=== PATIENT | female | born 1950 | race Caucasian/White ===

== ENCOUNTER 2018-11-13 05:50 | Outpatient (CLI) | payer MEDICARE, OTHER ==
[~2018-11-13] VITALS: Ht 165.1 cm; Wt 68.0 kg
[2018-11-13] MEDS ORDERED: POTA99TA21 PO (11:56)
[2018-11-13] MEDS ORDERED: LUTE6CAP2 PO (11:56)
[2018-11-13] MEDS ORDERED: MONT10TA24 PO (11:56)
[2018-11-13] MEDS ORDERED: LACT1CAP72 PO (11:56)
[2018-11-13] MEDS ORDERED: FOLI1TAB7 PO (11:56)
[2018-11-13] MEDS ORDERED: VITA-189 PO (11:56)
[2018-11-13] MEDS ORDERED: FERR159T2 PO (11:56)
[2018-11-13] MEDS ORDERED: MAGN500C15 PO (11:56)
[2018-11-13] MEDS ORDERED: UBID100C17 PO (11:56)
== END 2018-11-13 11:59 | disposition home or self-care (01) ==
LOC: PREOP 05:50
PROVIDERS: ATTEND Specialist
DX: Z01.818 Encounter for other preprocedural examination (principal)

== ENCOUNTER 2018-11-16 08:06 | Day surgery (SDC) | payer MEDICARE ==
[~2018-11-16] VITALS: Ht 165.1 cm; Wt 68.0 kg
[~2018-11-16 08:06] MED LIST: FERR159T2 PO; FOLI1TAB7 PO; LACT1CAP72 PO; LUTE6CAP2 PO; MAGN500C15 PO; MONT10TA24 PO; POTA99TA21 PO; UBID100C17 PO; VITA-189 PO
--- OUTSIDE RECORDS SUMMARY | 2018-11-16 08:10 | XMS REPORT ---
Author Author Madhuri Nieves [facility] Address [address] [place], [place] [id number] Care Team Providers Care [employer] Name Role Phone Madhuri Nieves PCP Madhuri Nieves PreferredProvider Allergies and Adverse Reactions Name Reaction Notes PENICILLINS SULFA (SULFONAMIDES) thermasol preservative Plan of Treatment Planned Activity Comments Planned Date Planned Time Plan/Goal Chest x-ray, PA and lateral 11/13/2018 12:00 AM EKG (12-lead electrocardiogram) 11/13/2018 12:00 AM Medications Active Name Start Date Estimated Completion Date SIG Comments montelukast 10 mg oral tablet 01/09/2018 TAKE ONE TABLET BY MOUTH ONCE DAILY IN THE MORNING for 90 days montelukast 10 mg oral tablet 07/17/2018 TAKE ONE TABLET BY MOUTH ONCE DAILY IN THE MORNING FOR 90 DAYS gabapentin 100 mg oral capsule 09/10/2018 12/09/2018 take 1 capsule (100 mg) by oral route AM AND 2 AT BEDTIME Name Start Date Expiration Date SIG Comments Gralise 30-Day Starter Pack oral tablet extended release 24 hr 300 mg (9)- 600 mg (69) 04/03/2013 04/17/2013 take 2 tablet (300 mg (9)- 600 mg (69)) by oral route daily for 30 days Gralise oral tablet extended release 24 hr 600 mg 04/17/2013 10/14/2013 take 2 tablets (600 mg) by oral route daily for 30 days fluticasone 50 mcg/actuation nasal spray,suspension 11/07/2016 01/06/2017 inhale 1 spray (50 mcg) in each nostril by intranasal route 2 times per day for 30 days azithromycin 250 mg oral tablet 01/21/2017 01/26/2017 take 2 tablets (500 mg) by oral route once daily for 1 day then 1 tablet (250 mg) by oral route once daily for 4 days doxycycline hyclate 100 mg oral tablet 03/23/2017 04/02/2017 1 TABLET 2XD FOR 10 DAYS clindamycin HCl 300 mg oral capsule 03/05/2018 03/15/2018 take 1 capsule (300 mg) by oral route 2 times per day for 10 days mupirocin 2 % topical ointment 03/05/2018 03/25/2018 apply a small amount to the affected area by topical route 2 times per day tramadol 50 mg oral tablet 03/08/2018 03/15/2018 take 1 tablet (50 mg) by oral route every 6 hours as needed for 7 days Cipro 500 mg oral tablet 03/28/2018 03/31/2018 take 1 tablet (500 mg) by oral route 2 times per day for 3 days Levaquin 500 mg oral tablet 09/10/2018 09/17/2018 take 1 tablet (500 mg) by oral route once daily for 7 days Zithromax Z-Hudson 250 mg oral tablet 11/01/2018 11/06/2018 take 2 tablets (500 mg ) by oral route once daily for 1 day then 1 tablet (250 mg) by oral route once daily for 4 days Discontinued Name Start Date Discontinued Date SIG Comments Piroxicam Oral Capsule 20 mg 01/18/2012 take 1 capsule (20 mg) by oral route once daily Super [place]-3 Oral Capsule 1,000 mg 01/18/2012 take 2 capsules by oral route daily Calcium 600 + D(3) Oral Tablet 600-400 mg-unit 01/18/2012 take 1 tablet by oral route 2 times a day hormone evy 01/18/2012 1 daily Ocutabs Oral Tablet 11/07/2016 take 1 tablet by oral route daily naproxen Oral Tablet 500 mg 11/07/2016 take 1 tablet by oral route 2 times a day Lyrica Oral Capsule 50 mg 04/03/2013 take 1 capsule (50 mg) by oral route 2 times per day Transderm-Scop 1.5 mg (1 mg over 3 days) transdermal patch 3 day 02/13/201708/2018 apply 1 patch by transdermal route to the hairless area behind 1 ear at least 4 hr before effect is required; reapply every 3 days as needed naproxen 500 mg oral tablet 01/09/2018 take 1 tablet (500 mg) by oral route 2 times per day with food cyclobenzaprine 10 mg oral tablet 09/10/2018 take 0.5 tablet by oral route once a day (at bedtime) Zithromax 250 mg oral tablet 11/09/2017 01/09/2018 take 2 tablets (500 mg) by oral route once daily for 1 day then 1 tablet (250 mg) by oral route once daily for 4 days Problem List Description Status Onset Numbness and Tingling Active lumbar back pain Active cervical neck pain Active Postviral fatigue syndrome Active 11/07/2016 Age-related osteoporosis without current pathological fracture Active 2018 Vital Signs Date Time BP-Sys(mm[Hg] BP-Jacqueline(mm[Hg]) HR(bpm) RR(rpm) Temp WT HT HC BMI BSA BMI Percentile O2 Sat(%) 11/13/2018 8:08:00 AM 120 mmHg 76 mmHg 78 bpm 18 rpm 98.2 F 158.5 lbs 65 in 26.3755 kg/m 1.8158 m 98 % 11/01/2018 2:39:00 PM 122 mmHg 74 mmHg 80 bpm 18 rpm 98.8 F 160.5 lbs 65 in 26.71 kg/m2 1.83 m2 96 % 09/10/2018 9:25:00 AM 136 mmHg 84 mmHg 102 bpm 18 rpm 97.9 F 162 lbs 65 in 26.96 kg/m2 1.84 m2 98 % 03/28/2018 8:22:00 AM 124 mmHg 78 mmHg 80 bpm 16 rpm 98.6 F 155.125 lbs 65 in 25.8139 kg/m 1.7964 m 98 % 03/13/2018 11:09:00 AM 118 mmHg 72 mmHg 76 bpm 18 rpm 99 F 153.375 lbs 65 in 25.52 kg/m2 1.79 m2 99 % 03/08/2018 9:52:00 AM 122 mmHg 72 mmHg 104 bpm 18 rpm 97.9 F 152 lbs 65 in 25.2939 kg/m 1.7782 m 98 % 03/05/2018 9:37:00 AM 118 mmHg 70 mmHg 104 bpm 18 rpm 98.1 F 151 lbs 65 in 25.13 kg/m2 1.77 m2 98 % 02/22/2018 1:32:00 PM 124 mmHg 78 mmHg 80 bpm 18 rpm 98.1 F 155.25 lbs 65 in 25.8347 kg/m 1.7971 m 99 % 01/22/2018 1:40:00 PM 124 mmHg 74 mmHg 78 bpm 18 rpm 97.8 F 153.375 lbs 65 in 25.52 kg/m2 1.79 m2 98 % 01/09/2018 10:20:00 AM 124 mmHg 78 mmHg 83 bpm 16 rpm 96.9 F 156 lbs 65 in 25.9595 kg/m 1.8014 m 99 % 11/09/2017 1:24:00 PM 122 mmHg 84 mmHg 80 bpm 18 rpm 97.1 F 153.5 lbs 65 in 25.54 kg/m2 1.79 m2 99 % 03/23/2017 8:49:00 AM 124 mmHg 84 mmHg 88 bpm 18 rpm 97.6 F 162.25 lbs 65 in 26.9995 kg/m 1.8372 m 98 % 01/21/2017 10:04:00 AM 136 mmHg 80 mmHg 94 bpm 14 rpm 98.3 F 166.375 lbs 65 in 27.69 kg/m2 1.86 m2 99 % 11/07/2016 3:18:00 PM 128 mmHg 80 mmHg 82 bpm 18 rpm 98.4 F 159.5 lbs 65 in 26.5419 kg/m 1.8215 m 97 % 04/17/2013 4:16:00 PM 118 mmHg 70 mmHg 70 bpm 16 rpm 98.5 F 155 lbs 65 in 25.79 kg/m2 1.80 m2 04/03/2013 8:50:00 AM 132 mmHg 80 mmHg 82 bpm 16 rpm 97.9 F 158.375 lbs 65 in 26.3547 kg/m 1.8151 m 09/22/2010 8:10:00 AM 122 mmHg 88 mmHg 74 bpm 16 rpm 97.2 F 166 lbs 08/18/2010 11:16:00 AM 110 mmHg 72 mmHg 74 bpm 16 rpm 97.2 F 168.25 lbs 07/22/2010 4:33:00 PM 132 mmHg 84 mmHg 82 bpm 18 rpm 96.2 F 169.25 lbs 06/18/2010 8:32:00 AM 126 mmHg 84 mmHg 72 bpm 16 rpm 98.2 F 168 lbs Social History Name Description Comments Lives with spouse in a house x 12 years,she has 3 grown children College graduate bachelors degree 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Alcohol Use - Rare 3-4 drinks per year Tobacco Never smoker History of Procedures Date Ordered Description Order Status 01/18/2012 12:00 AM MUSCLE TEST ONE LIMB Reviewed 01/18/2012 12:00 AM NERVE CONDUCTION, MOTOR Reviewed 01/18/2012 12:00 AM NERVE CONDUCTION, SENSORY Reviewed 11/24/2016 12:00 AM COMPLETE CBC W/AUTO DIFF WBC Reviewed 11/24/2016 12:00 AM ROUTINE VENIPUNCTURE Reviewed 11/07/2016 12:00 AM COMPLETE CBC W/AUTO DIFF WBC Reviewed 11/07/2016 12:00 AM COMPREHEN METABOLIC PANEL Reviewed 11/07/2016 12:00 AM LOC-ELIZABETH ANTIBODY Reviewed 11/07/2016 12:00 AM LOC-ELIZABETH NUCLEAR ANTIGEN Reviewed 11/07/2016 12:00 AM LOC-ELIZABETH CAPSID VCA Reviewed 12/04/2016 12:00 AM ROUTINE VENIPUNCTURE Reviewed 03/23/2017 12:00 AM COMPLETE CBC W/AUTO DIFF WBC Reviewed 03/23/2017 12:00 AM COMPREHEN METABOLIC PANEL Reviewed 03/23/2017 12:00 AM THER/PROPH/DIAG INJ SC/IM Reviewed 03/23/2017 12:00 AM Decadron 4mg Injection Reviewed 03/23/2017 12:00 AM Depo-Medrol 40mg Injection Reviewed 03/23/2017 12:00 AM LYME DISEASE ANTIBODY Reviewed 03/23/2017 12:00 AM EHRLICHIA ANTIBODY Reviewed 03/23/2017 12:00 AM ROUTINE VENIPUNCTURE Reviewed 11/09/2017 12:00 AM THER/PROPH/DIAG INJ SC/IM Reviewed 11/09/2017 12:00 AM Decadron 4mg Injection Reviewed 11/09/2017 12:00 AM Depo-Medrol 40mg Injection Reviewed 01/22/2018 1:44 PM URINALYSIS AUTO W/O SCOPE Reviewed 01/22/2018 12:00 AM COMPLETE CBC W/AUTO DIFF WBC Reviewed 01/22/2018 12:00 AM COMPREHEN METABOLIC PANEL Reviewed 01/22/2018 12:00 AM CHEST X-RAY 2VW FRONTAL&LATL Reviewed 01/22/2018 12:00 AM ELECTROCARDIOGRAM COMPLETE Reviewed 01/22/2018 12:00 AM URINALYSIS AUTO W/O SCOPE Reviewed 01/22/2018 12:00 AM ASSAY OF MAGNESIUM Reviewed 01/22/2018 12:00 AM ECHO EXAM OF ABDOMEN Reviewed 01/22/2018 12:00 AM DXA BONE DENSITY AXIAL Reviewed 01/22/2018 12:00 AM COLLECTION VENOUS BLOOD VENIPUNCTURE Reviewed 03/05/2018 12:00 AM MICROBIOLOGY PROCEDURE Reviewed 03/05/2018 12:00 AM Lincocin, Up to 300 Mg [facility]#[id number] Reviewed 03/28/2018 8:28 AM URINALYSIS AUTO W/O SCOPE Reviewed 03/28/2018 12:00 AM URINE CULTURE/COLONY COUNT Reviewed 03/28/2018 12:00 AM URINALYSIS AUTO W/O SCOPE Reviewed 04/17/2013 12:00 AM MUSC TEST DONE W/N TEST COMP Reviewed 04/17/2013 12:00 AM NRV CNDJ TST 3-4 STUDIES Reviewed 09/10/2018 12:00 AM IMMUNIZATION ADMIN Reviewed 09/10/2018 12:00 AM MEDICARE - flu vaccine administration Reviewed 09/10/2018 12:00 AM FLU VAC NO PRSV 4 ANGEL 3 YRS+ Reviewed 11/13/2018 9:17 AM URINALYSIS AUTO W/O SCOPE Reviewed 11/13/2018 12:00 AM COMPLETE CBC W/AUTO DIFF WBC Returned 11/13/2018 12:00 AM COMPREHEN METABOLIC PANEL Returned 11/13/2018 12:00 AM URINALYSIS AUTO W/O SCOPE Reviewed 11/13/2018 12:00 AM VITAMIN D 25 HYDROXY Returned 11/13/2018 12:00 AM COLLECTION VENOUS BLOOD VENIPUNCTURE Reviewed 07/22/2010 12:00 AM Yrn [id number] DOMINIC Reviewed 07/22/2010 12:00 AM INJ TENDON SHEATH/LIGAMENT Reviewed 11/05/2009 12:00 AM MUSCLE TEST ONE LIMB Reviewed 11/05/2009 12:00 AM NERVE CONDUCTION, MOTOR Reviewed 11/05/2009 12:00 AM NERVE CONDUCTION, SENSORY Reviewed Results Summary Date and Description Results 11/07/2016 5:56 PM WBC 7.0 RBC 5.51 HGB 16.10 g/dLHCT 49.0 %MCV 89.0 fLMCH 29.20 pgMCHC 32.90 g/dLRDW SD 44 RDW CV 13.20 %MPV 9.40 fLPLT 326 NRBC# 0.00 NRBC% 0.0 %NEUT 54.50 %%LYMP 33.10 %%MONO 9.60 %%EOS 1.30 %%BASO 1.10 %#NEUT 3.82 #LYMP 2.32 #MONO 0.67 #EOS 0.09 #BASO 0.08 MANUAL DIFF NOT IND GLUCOSE 97.0 mg/dLSODIUM 140.0 mmol/LPOTASSIUM 4.50 mmol/LCHLORIDE 101.0 mmol/LCO2 26.0 mmol/LBUN 22.0 mg/dLCREATININE 0.80 mg/dLSGOT/AST 17.0 IU/LSGPT/ALT 17.0 IU/ LALK PHOS 113.0 IU/LTOTAL PROTEIN 7.40 g/dLALBUMIN 4.20 g/dLTOTAL BILI 0.50 mg/ dLCALCIUM 9.70 mg/dLAGE 65 GFR NonAA 72 GFR AA 87 eGFR >60 mL/min/1.73meGFR AA * >60 11/07/2016 6:01 PM EBV Ab VCA, IgM <36.0 U/mLEBV Early Antigen Ab, IgG 102.0 EBV Ab VCA, IgG 138.0 U/mLEBV Nuclear Antigen Ab,IgG 433.0 11/24/2016 8:15 AM WBC 5.2 RBC 5.03 HGB 15.10 g/dLHCT 45.90 %MCV 91.0 fLMCH 30.0 pgMCHC 32.90 g/dLRDW SD 46 RDW CV 13.70 %MPV 9.50 fLPLT 274 NRBC# 0.00 NRBC % 0.0 %NEUT 49.50 %%LYMP 36.30 %%MONO 11.10 %%EOS 1.70 %%BASO 1.20 %#NEUT 2.55 # LYMP 1.87 #MONO 0.57 #EOS 0.09 #BASO 0.06 MANUAL DIFF NOT IND 03/23/2017 9:15 AM WBC 4.1 RBC 5.16 HGB 15.50 g/dLHCT 46.40 %MCV 90.0 fLMCH 30.0 pgMCHC 33.40 g/dLRDW SD 42 RDW CV 12.60 %MPV 10.10 fLPLT 245 NRBC# 0.00 NRBC% 0.0 %NEUT 43.50 %%LYMP 38.30 %%MONO 8.50 %%EOS 7.10 %%BASO 2.40 %#NEUT 1.78 #LYMP 1.57 #MONO 0.35 #EOS 0.29 #BASO 0.10 MANUAL DIFF NOT IND GLUCOSE 79.0 mg/dLSODIUM 142.0 mmol/LPOTASSIUM 3.60 mmol/LCHLORIDE 103.0 mmol/LCO2 29.0 mmol/LBUN 20.0 mg/dLCREATININE 0.90 mg/dLSGOT/AST 27.0 IU/LSGPT/ALT 19.0 IU/ LALK PHOS 93.0 IU/LTOTAL PROTEIN 7.40 g/dLALBUMIN 4.40 g/dLTOTAL BILI 0.80 mg/ dLCALCIUM 9.80 mg/dLAGE 66 GFR NonAA 63 GFR AA 76 eGFR >60 mL/min/1.73meGFR AA * >60 Lyme IgG/IgM Ab <0.91 Lyme Disease Ab, Quant,IgM <0.80 RMSF, IgG, EIA Negative [facility] Spotted Fever,IgM 0.15 E. chaffeensis (HME) IgGTiter Negative titerE. chaffeensis (HME) IgMTiter Negative 01/22/2018 1:44 PM Clarity Ur clear Urine-Color dark yellow Glucose Ur-sCnc neg Bilirub Ur Ql neg Ketones Ur Ql Strip neg Sp Gr Ur Qn 1.010 Hgb Ur Ql Strip neg pH Ur-LsCnc 7.5 Prot Ur Ql Strip neg Urobilinogen Ur-mCnc neg Nitrite Ur Ql Strip neg WBC # Ur neg 01/22/2018 2:10 PM WBC 5.3 RBC 4.67 HGB 14.40 g/dLHCT 43.30 %MCV 93.0 fLMCH 30.80 pgMCHC 33.30 g/dLRDW SD 44 RDW CV 13.10 %MPV 10.0 fLPLT 244 NRBC# 0.00 NRBC% 0.0 %NEUT 46.40 %%LYMP 36.30 %%MONO 12.40 %%EOS 3.60 %%BASO 0.90 %#NEUT 2.47 #LYMP 1.93 #MONO 0.66 #EOS 0.19 #BASO 0.05 MANUAL DIFF NOT IND GLUCOSE 109.0 mg/dLSODIUM 138.0 mmol/LPOTASSIUM 3.40 mmol/LCHLORIDE 103.0 mmol/LCO2 29.0 mmol/LBUN 21.0 mg/dLCREATININE 0.80 mg/dLSGOT/AST 30.0 IU/LSGPT/ALT 18.0 IU /LALK PHOS 92.0 IU/LTOTAL PROTEIN 6.70 g/dLALBUMIN 4.10 g/dLTOTAL BILI 0.50 mg/ dLCALCIUM 8.90 mg/dLAGE 67 GFR NonAA 72 GFR AA 87 eGFR >60 mL/min/1.73meGFR AA * >60 MAGNESIUM 2.50 mg/dL 03/05/2018 10:00 AM SPECIMEN SOURCE: SPINAL SURGERY INCIS SPECIMEN SOURCE: SPINAL SURGERY INCIS 03/28/2018 8:28 AM Clarity Ur clear Urine-Color yellow Glucose Ur-sCnc negative Bilirub Ur Ql negative Ketones Ur Ql Strip negative Sp Gr Ur Qn 1.015 Hgb Ur Ql Strip trace pH Ur-LsCnc 6.0 Prot Ur Ql Strip negative Urobilinogen Ur- mCnc negative Nitrite Ur Ql Strip negative WBC # Ur negative 11/02/2018 3:05 PM Falls in last 6 months? No Unsteady or worry about falling? No Fall Risk Assessment Not At Risk During the past month, have you been feeling depressed? No During the past month, have you lost interest in usual activity? No 11/13/2018 9:17 AM Clarity Ur clear Urine-Color yellow Glucose Ur-sCnc negative Bilirub Ur Ql negative Ketones Ur Ql Strip negative Sp Gr Ur Qn 1.015 Hgb Ur Ql Strip trace pH Ur-LsCnc 7.0 Prot Ur Ql Strip negative Urobilinogen Ur- mCnc negative Nitrite Ur Ql Strip negative WBC # Ur negative 11/14/2018 7:27 AM Falls in last 6 months? No Unsteady or worry about falling? No Fall Risk Assessment Not At Risk During the past month, have you been feeling depressed? No During the past month, have you lost interest in usual activity? No History Of Immunizations Name Date Admin Mfg Name Mfg Code Trade Name Lot# Route Inj Vis Given Vis Pub CVX Influenza 09/10/2018 GlaxoSmithKline SKB Flulaval quadrivalent [id number] Intramuscular Left Deltoid 09/10/2018 10/30/2018 158 History of Past Illness Name Date of Onset Comments Pain in limb Nov 05 2009 10:44AM Skin Sensation Disturbance Nov 05 2009 10:44AM Hormone replacement therapy lumbar back pain cervical neck pain Numbness and Tingling Pain in joint; hand Jun 18 2010 8:51AM Pain in joint; hand Jul 22 2010 4:35PM Radial styloid tenosynovitis; de Quervain's Disease Jul 22 2010 5:32PM Pain in joint; hand Aug 18 2010 11:17AM Pain in joint; hand Sep 22 2010 8:13AM Cervical Radiculopathy Sep 22 2010 8:13AM Postviral fatigue syndrome 11/07/2016 Age-related osteoporosis without current pathological fracture 11/13/2018 Pain in limb Jan 18 2012 10:39AM Skin Sensation Disturbance Jan 18 2012 10:39AM Cervical Radiculopathy Jan 18 2012 10:39AM Pain in joint; hand Apr 03 2013 8:54AM Cervical Radiculopathy Apr 03 2013 8:54AM Pain in joint; hand Apr 17 2013 4:18PM Cervical Radiculopathy Apr 17 2013 4:18PM Cervical Radiculopathy Apr 17 2013 5:21PM Postviral fatigue syndrome Nov 07 2016 3:19PM Maxillary sinusitis, acute Nov 07 2016 3:19PM Benign positional vertigo, bilateral Nov 07 2016 3:19PM Abnormal CBC Nov 24 2016 12:42PM Polycythemia Nov 24 2016 12:42PM Acute streptococcal pharyngitis Jan 21 2017 10:06AM Upper Respiratory Infection Jan 21 2017 10:06AM Insect bite (nonvenomous) of lower back and pelvis, initial encounter Mar 23 2017 8:51AM Bitten or stung by nonvenomous insect and other nonvenomous arthropods, initial encounter Mar 23 2017 8:51AM Arthralgia, unspecified joint Mar 23 2017 8:51AM Muscle ache of extremity Mar 23 2017 8:51AM Disorder of both eustachian tubes Mar 23 2017 8:51AM Cough Nov 09 2017 1:27PM Acute pharyngitis, unspecified etiology Nov 09 2017 1:27PM Acute non-recurrent pansinusitis Nov 09 2017 1:27PM Auditory tube disorder, bilateral Nov 09 2017 1:27PM Seasonal allergic rhinitis, unspecified trigger Jan 09 2018 10:22AM Auditory tube disorder, bilateral Jan 09 2018 10:22AM Welcome to Medicare preventive visit Jan 22 2018 1:44PM Family history of heart disease Jan 22 2018 1:44PM Radiculopathy of leg Jan 22 2018 1:44PM Menopause Jan 22 2018 1:44PM Low back pain Feb 22 2018 1:33PM Pars defect of lumbar spine Feb 22 2018 1:33PM Incisional abscess, initial encounter Mar 05 2018 9:40AM S/P spinal surgery Mar 05 2018 9:40AM S/P spinal surgery Mar 08 2018 9:53AM Abscess Mar 08 2018 9:53AM MRSA (methicillin resistant staph aureus) culture positive Mar 08 2018 9: 53AM lumbar back pain Mar 13 2018 11:09AM Low back pain Mar 28 2018 8:28AM Other chronic pain Mar 28 2018 8:28AM Hematuria Mar 28 2018 8:28AM Urinary frequency Mar 28 2018 8:28AM Wound abscess, sequela Mar 13 2018 11:09AM Tinnitus aurium, bilateral Mar 28 2018 8:28AM Wound abscess, sequela Mar 28 2018 8:28AM Abscess of wound following procedure Mar 13 2018 11:09AM S/P spinal surgery Mar 13 2018 11:09AM S/P spinal surgery Mar 28 2018 8:28AM Acute pharyngitis, unspecified etiology Sep 10 2018 9:27AM Acute non-recurrent pansinusitis Sep 10 2018 9:27AM Needs flu shot Sep 10 2018 9:27AM Restless leg syndrome Sep 10 2018 9:27AM DDD (degenerative disc disease), lumbar Sep 10 2018 9:27AM Acute pharyngitis, unspecified etiology Nov 01 2018 2:43PM Purulent rhinitis Nov 01 2018 2:43PM Cough Nov 13 2018 8:10AM Age-related osteoporosis without current pathological fracture Nov 13 2018 8: 10AM Abnormal EKG Nov 13 2018 8:10AM Anesthesia of skin Nov 13 2018 8:10AM Paresthesia of skin Nov 13 2018 8:10AM lumbar back pain Nov 13 2018 8:10AM Cervical stenosis of spinal canal Nov 13 2018 8:10AM Family history of heart disease in female family member before age 65 Nov 13 2018 8:10AM Vitamin D deficiency Nov 13 2018 8:10AM Cataract Nov 13 2018 8:10AM Payers Insurance Name Company Name Plan Name Plan Number Policy Number Policy Group Number Start Date Medicare [facility] Medicare [facility] [id number] N/A AARP AARP [id number] N/A Medicare Part A Medicare - Lab/Xray [id number] N/A Medicare Part B Medicare Of [place] [id number] N/A BCBS [facility] [id number] N/A State Farm Insurance [employer] [id number] N/A Medicare RHC Medicare RHC [id number] Monday, October 30, 2017 History of Encounters Visit Date Visit Type Provider 11/13/2018 Office visit Madhuri Nieves CATSHOVEL DRIVER 11/01/2018 Office visit Madhuri Nieves CATSHOVEL DRIVER 09/10/2018 Office visit Madhuri Nieves CATSHOVEL DRIVER 03/28/2018 Office visit Madhuri Nieves CATSHOVEL DRIVER 03/13/2018 Office visit Madhuri Nieves CATSHOVEL DRIVER 03/08/2018 Office visit Madhuri Nieves CATSHOVEL DRIVER 03/05/2018 Office visit Madhuri Nieves CATSHOVEL DRIVER 02/22/2018 Office visit Madhuri Nieves CATSHOVEL DRIVER 01/25/2018 Hospital Skye Weaver MD 01/22/2018 Office visit Madhuri Nieves CATSHOVEL DRIVER 01/09/2018 Office visit Madhuri Nieves CATSHOVEL DRIVER 11/09/2017 Office visit Madhuri Nieves CATSHOVEL DRIVER 03/23/2017 Office visit Madhuri Nieves CATSHOVEL DRIVER 01/21/2017 Office visit Yesenia Dobbs CATSHOVEL DRIVER 11/24/2016 Laboratory Madhuri Nieves CATSHOVEL DRIVER 11/07/2016 Office visit Madhuri Nieves CATSHOVEL DRIVER 03/13/2015 Hospital Skye Weaver MD 04/17/2013 Office visit Ruben Carpenter MD 04/03/2013 Office visit Ruben Carpenter MD 01/18/2012 Procedures Ruben Carpenter MD 09/22/2010 Office visit Ruben Carpenter MD 08/18/2010 Office visit Ruben Carpenter MD 07/22/2010 Office visit Ruben Carpenter MD 06/18/2010 Office visit Ruben Carpenter MD 06/08/2010 Procedures Ruben Carpenter MD 11/05/2009 Procedures Ruben Carpenter MD
--- OUTSIDE RECORDS SUMMARY | 2018-11-16 08:10 | XMS REPORT ---
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 chaffeensis [...] Number Policy Group Number Start Date Medicare [facility] Medicare [facility] [id number] N/A AARP AARP [id number] N/A Medicare Part A Medicare - Lab/Xray [id number] N/A Medicare Part B Medicare Of [place] [id number] N/A BCBS [facility] [id number] N/A State Farm Insurance [employer] [id number] N/A Medicare RHC Medicare RHC [id number] Monday, October 30, 2017 History of Encounters Visit Date Visit Type Provider 11/13/2018 Office visit Madhuri Nieves RECORDING STUDIO SET UP WORKER 11/01/2018 Office visit Madhuri Nieves RECORDING STUDIO SET UP WORKER 09/10/2018 Office visit Madhuri Nieves RECORDING STUDIO SET UP WORKER 03/28/2018 Office visit Madhuri Nieves RECORDING STUDIO SET UP WORKER 03/13/2018 Office visit Madhuri Nieves RECORDING STUDIO SET UP WORKER 03/08/2018 Office visit Madhuri Nieves RECORDING STUDIO SET UP WORKER 03/05/2018 Office visit Madhuri Nieves RECORDING STUDIO SET UP WORKER 02/22/2018 Office visit Madhuri Nieves RECORDING STUDIO SET UP WORKER 01/25/2018 Hospital Skye Weaver MD 01/22/2018 Office visit Madhuri Nieves RECORDING STUDIO SET UP WORKER 01/09/2018 Office visit Madhuri Nieves RECORDING STUDIO SET UP WORKER 11/09/2017 Office visit Madhuri Nieves RECORDING STUDIO SET UP WORKER 03/23/2017 Office visit Madhuri Nieves RECORDING STUDIO SET UP WORKER 01/21/2017 Office visit Yesenia Dobbs RECORDING STUDIO SET UP WORKER 11/24/2016 Laboratory Madhuri Nieves RECORDING STUDIO SET UP WORKER 11/07/2016 Office visit Madhuri Nieves RECORDING STUDIO SET UP WORKER 03/13/2015 Hospital Skye Weaver MD 04/17/2013 Office visit Ruben Carpenter MD 04/03/2013 Office visit Ruben Carpenter MD 01/18/2012 Procedures Ruben Carpenter MD 09/22/2010 Office visit Ruben Carpenter MD 08/18/2010 Office visit Ruben Carpenter MD 07/22/2010 Office visit Ruben Carpenter MD 06/18/2010 Office visit Ruben Carpenter MD 06/08/2010 Procedures Ruben Carpenter MD 11/05/2009 Procedures Ruben Carpenter MD
--- OUTSIDE RECORDS SUMMARY | 2018-11-16 08:11 | XMS REPORT ---
Author Author Madhuri Nieves [facility] Address [address] [place], [place] [id number] Care Team Providers Care Assistant Professor Of Anthropology Name Role Phone Madhuri Nieves PCP Madhuri [...] mg) by oral route once daily Super [place]-3 Oral Capsule 1,000 mg 01/18/2012 take 2 [...] 12:00 AM Lincocin, Up to 300 Mg [facility]#[id number] Reviewed 03/28/2018 8:28 AM URINALYSIS AUTO W/O [...] BLOOD VENIPUNCTURE Reviewed 07/22/2010 12:00 AM Yrn [id number] DOMINIC Reviewed 07/22/2010 12:00 AM INJ TENDON [...] Ab, Quant,IgM <0.80 RMSF, IgG, EIA Negative [facility] Spotted Fever,IgM 0.15 E. chaffeensis (HME) IgGTiter [...] Number Policy Group Number Start Date Medicare [facility] Medicare [facility] [id number] N/A AARP AARP [id number] N/A Medicare Part A Medicare - Lab/Xray [id number] N/A Medicare Part B Medicare Of [place] [id number] N/A BCBS [facility] [id number] N/A State Farm Insurance [employer] Farm [id number] N/A Medicare RHC Medicare RHC [id number] Monday, October 30, 2017 History of Encounters Visit Date Visit Type Provider 11/13/2018 Office visit Madhuri Nieves DRYWALL HANGER HELPER 11/01/2018 Office visit Madhuri Nieves DRYWALL HANGER HELPER 09/10/2018 Office visit Madhuri Nieves DRYWALL HANGER HELPER 03/28/2018 Office visit Madhuri Nieves DRYWALL HANGER HELPER 03/13/2018 Office visit Madhuri Nieves DRYWALL HANGER HELPER 03/08/2018 Office visit Madhuri Nieves DRYWALL HANGER HELPER 03/05/2018 Office visit Madhuri Nieves DRYWALL HANGER HELPER 02/22/2018 Office visit Madhuri Nieves DRYWALL HANGER HELPER 01/25/2018 Hospital Skye Weaver MD 01/22/2018 Office visit Madhuri Nieves DRYWALL HANGER HELPER 01/09/2018 Office visit Madhuri Nieves DRYWALL HANGER HELPER 11/09/2017 Office visit Madhuri Nieves DRYWALL HANGER HELPER 03/23/2017 Office visit Madhuri Nieves DRYWALL HANGER HELPER 01/21/2017 Office visit Yesenia Dobbs DRYWALL HANGER HELPER 11/24/2016 Laboratory Madhuri Nieves DRYWALL HANGER HELPER 11/07/2016 Office visit Madhuri Nieves DRYWALL HANGER HELPER 03/13/2015 Hospital Skye Weaver MD 04/17/2013 Office visit Ruben Carpenter MD 04/03/2013 Office visit Ruben Carpenter MD 01/18/2012 Procedures Ruben Carpenter MD 09/22/2010 Office visit Ruben Carpenter MD 08/18/2010 Office visit Ruben Carpenter MD 07/22/2010 Office visit Ruben Carpenter MD 06/18/2010 Office visit Ruben Carpenter MD 06/08/2010 Procedures Ruben Carpenter MD 11/05/2009 Procedures Ruben Carpenter MD
--- OUTSIDE RECORDS SUMMARY | 2018-11-16 08:12 | XMS REPORT ---
Author Author Madhuri Nieves [facility] Address [address] [place], [place] [address] Care Team Providers Care Deputy Coroner Investigator Name Role Phone Madhuri Nieves PCP Madhuri Nieves PreferredProvider Allergies and Adverse Reactions Name Reaction Notes PENICILLINS SULFA (SULFONAMIDES) thermasol preservative Plan of Treatment Not available. Medications Active Name Start Date Estimated Completion [...] oral route AM AND 2 AT BEDTIME Zithromax Z-[place] 250 mg oral tablet 11/01/2018 11/06/2018 take 2 tablets (500 mg ) by oral route once daily for 1 day then 1 tablet (250 mg) by oral route once daily for 4 days Name Start Date Expiration Date SIG Comments [...] oral route once daily for 7 days Discontinued Name Start Date Discontinued Date SIG Comments Piroxicam Oral Capsule 20 mg 01/18/2012 take 1 capsule (20 mg) by oral route once daily Super [place]-3 Oral Capsule 1,000 mg 01/18/2012 take 2 [...] pain Active Postviral fatigue syndrome Active 11/07/2016 Vital Signs Date Time BP-Sys(mm[Hg] BP-Jacqueline(mm[Hg]) HR(bpm) RR(rpm) Temp WT HT HC BMI BSA BMI Percentile O2 Sat(%) 11/01/2018 2:39:00 PM 122 mmHg 74 mmHg 80 bpm 18 rpm 98.8 F 160.5 lbs 65 in 26.7083 kg/m 1.8272 m 96 % 09/10/2018 9:25:00 AM 136 mmHg [...] 12:00 AM Lincocin, Up to 300 Mg [facility]#[id number] Reviewed 03/28/2018 8:28 AM URINALYSIS AUTO W/O [...] NO PRSV 4 ANGEL 3 YRS+ Reviewed 07/22/2010 12:00 AM Yrn [id number] DOMINIC Reviewed 07/22/2010 12:00 AM INJ TENDON [...] Ab, Quant,IgM <0.80 RMSF, IgG, EIA Negative [facility] Spotted Fever,IgM 0.15 E. chaffeensis [...] 22 2010 8:13AM Postviral fatigue syndrome 11/07/2016 Pain in limb Jan 18 2012 10:39AM [...] 2:43PM Purulent rhinitis Nov 01 2018 2:43PM Payers Insurance Name Company Name Plan Name Plan Number Policy Number Policy Group Number Start Date Medicare RHC Medicare RHC [id number] N/A AARP AARP [id number] N/A Medicare Part A Medicare - Lab/Xray [id number] N/A Medicare Part B Medicare Of [place] [id number] N/A BCBS [employer] [place] [id number] N/A [place] [employer] [place] [id number] N/A Medicare [facility] Medicare [facility] [id number] Monday, October 30, 2017 History of Encounters Visit Date Visit Type Provider 11/01/2018 Office visit Madhuri Nieves BUS OPERATOR 09/10/2018 Office visit Madhuri Nieves BUS OPERATOR 03/28/2018 Office visit Madhuri Nieves BUS OPERATOR 03/13/2018 Office visit Madhuri Nieves BUS OPERATOR 03/08/2018 Office visit Madhuri Nieves BUS OPERATOR 03/05/2018 Office visit Madhuri Nieves BUS OPERATOR 02/22/2018 Office visit Madhuri Nieves BUS OPERATOR 01/25/2018 Hospital Skye Weaver MD 01/22/2018 Office visit Madhuri Nieves BUS OPERATOR 01/09/2018 Office visit Madhuri Nieves BUS OPERATOR 11/09/2017 Office visit Madhuri Nieves BUS OPERATOR 03/23/2017 Office visit Madhuri Nieves BUS OPERATOR 01/21/2017 Office visit Yesenia Dobbs BUS OPERATOR 11/24/2016 Laboratory Madhuri Nieves BUS OPERATOR 11/07/2016 Office visit Madhuri Nieves BUS OPERATOR 03/13/2015 Hospital Skye Weaver MD 04/17/2013 Office visit Ruben Carpenter MD 04/03/2013 Office visit Ruben Carpenter MD 01/18/2012 Procedures Ruben Carpenter MD 09/22/2010 Office visit Ruben Carpenter MD 08/18/2010 Office visit Ruben Carpenter MD 07/22/2010 Office visit Ruben Carpenter MD 06/18/2010 Office visit Ruben Carpenter MD 06/08/2010 Procedures Ruben Carpenter MD 11/05/2009 Procedures Ruben Carpenter MD
--- OUTSIDE RECORDS SUMMARY | 2018-11-16 08:13 | XMS REPORT ---
Author Author Madhuri Nieves [facility] Address [address] [place], [place] [address] Care Team Providers Care Java Developer With Security Clearance Name Role Phone Madhuri Nieves PCP Madhuri [...] oral route AM AND 2 AT BEDTIME Levaquin 500 mg oral tablet 09/10/2018 09/17/2018 take 1 tablet (500 mg) by oral route once daily for 7 days Name Start Date Expiration Date SIG [...] 2 times per day for 3 days Discontinued Name Start Date Discontinued Date SIG Comments Piroxicam Oral Capsule 20 mg 01/18/2012 take 1 capsule (20 mg) by oral route once daily Super [place]-3 Oral Capsule 1,000 mg 01/18/2012 take 2 [...] HC BMI BSA BMI Percentile O2 Sat(%) 09/10/2018 9:25:00 AM 136 mmHg 84 mmHg 102 bpm 18 rpm 97.9 F 162 lbs 65 in 26.9579 kg/m 1.8358 m 98 % 03/28/2018 8:22:00 AM 124 mmHg 78 mmHg 80 bpm 16 rpm 98.6 F 155.125 lbs 65 in 25.81 kg/m2 1.80 m2 98 % 03/13/2018 11:09:00 AM 118 mmHg 72 mmHg 76 bpm 18 rpm 99 F 153.375 lbs 65 in 25.5227 kg/m 1.7862 m 99 % 03/08/2018 9:52:00 AM 122 mmHg 72 mmHg 104 bpm 18 rpm 97.9 F 152 lbs 65 in 25.29 kg/m2 1.78 m2 98 % 03/05/2018 9:37:00 AM 118 mmHg 70 mmHg 104 bpm 18 rpm 98.1 F 151 lbs 65 in 25.1275 kg/m 1.7723 m 98 % 02/22/2018 1:32:00 PM 124 mmHg 78 mmHg 80 bpm 18 rpm 98.1 F 155.25 lbs 65 in 25.83 kg/m2 1.80 m2 99 % 01/22/2018 1:40:00 PM 124 mmHg 74 mmHg 78 bpm 18 rpm 97.8 F 153.375 lbs 65 in 25.5227 kg/m 1.7862 m 98 % 01/09/2018 10:20:00 AM 124 mmHg 78 mmHg 83 bpm 16 rpm 96.9 F 156 lbs 65 in 25.96 kg/m2 1.80 m2 99 % 11/09/2017 1:24:00 PM 122 mmHg 84 mmHg 80 bpm 18 rpm 97.1 F 153.5 lbs 65 in 25.5435 kg/m 1.7869 m 99 % 03/23/2017 8:49:00 AM 124 mmHg 84 mmHg 88 bpm 18 rpm 97.6 F 162.25 lbs 65 in 27.00 kg/m2 1.84 m2 98 % 01/21/2017 10:04:00 AM 136 mmHg 80 mmHg 94 bpm 14 rpm 98.3 F 166.375 lbs 65 in 27.686 kg/m 1.8604 m 99 % 11/07/2016 3:18:00 PM 128 mmHg 80 mmHg 82 bpm 18 rpm 98.4 F 159.5 lbs 65 in 26.54 kg/m2 1.82 m2 97 % 04/17/2013 4:16:00 PM 118 mmHg 70 mmHg 70 bpm 16 rpm 98.5 F 155 lbs 65 in 25.7931 kg/m 1.7957 m 04/03/2013 8:50:00 AM 132 mmHg 80 mmHg 82 bpm 16 rpm 97.9 F 158.375 lbs 65 in 26.3547 kg/m 1.82 m2 09/22/2010 8:10:00 AM 122 mmHg 88 mmHg [...] 12:00 AM Lincocin, Up to 300 Mg [facility]#[id number] Reviewed 03/28/2018 8:28 AM URINALYSIS AUTO W/O SCOPE Reviewed 03/28/2018 12:00 AM URINE CULTURE/COLONY COUNT Reviewed 03/28/2018 12:00 AM URINALYSIS AUTO W/O SCOPE Reviewed 04/17/2013 12:00 AM MUSC TEST DONE W/N TEST COMP Reviewed 04/17/2013 12:00 AM NRV CNDJ TST 3-4 STUDIES Reviewed 09/10/2018 12:00 AM IMMUNIZATION ADMIN Reviewed 09/10/2018 12:00 AM FLU VAC NO PRSV 4 ANGEL 3 YRS+ Reviewed 07/22/2010 12:00 AM Kenalog [id number] DOMINIC Reviewed 07/22/2010 12:00 AM INJ TENDON [...] Ab, Quant,IgM <0.80 RMSF, IgG, EIA Negative [facility] Spotted Fever,IgM 0.15 E. chaffeensis (HME) [...] Ql Strip negative WBC # Ur negative History Of Immunizations Name Date Admin Mfg [...] disc disease), lumbar Sep 10 2018 9:27AM Payers Insurance Name Company Name Plan Name Plan Number Policy Number Policy Group Number Start Date Medicare RHC Medicare RHC [id number] Monday, 2017 AARP AARP [id number] N/A Medicare Part A Medicare - Lab/Xray [id number] N/A Medicare Part B Medicare Of [place] [id number] N/A [facility] [id number] N/A [facility] Insurance [facility] [id number] N/A History of Encounters Visit Date Visit Type Provider 09/10/2018 Office visit Madhuri Nieves BLACKSMITH HELPER 03/28/2018 Office visit Madhuri Janiya Nieves BLACKSMITH HELPER 03/13/2018 Office visit Madhuri Nieves BLACKSMITH HELPER 03/08/2018 Office visit Madhuri Nieves BLACKSMITH HELPER 03/05/2018 Office visit Madhuri Nieves BLACKSMITH HELPER 02/22/2018 Office visit Madhuri Nieves BLACKSMITH HELPER 01/25/2018 [facility] Skye Weaver MD 01/22/2018 Office visit Madhuri Nieves BLACKSMITH HELPER 01/09/2018 Office visit Madhuri Nieves BLACKSMITH HELPER 11/09/2017 Office visit Madhuri Nieves BLACKSMITH HELPER 03/23/2017 Office visit Madhuri Nieves BLACKSMITH HELPER 01/21/2017 Office visit Yesenia Dobbs BLACKSMITH HELPER 11/24/2016 Laboratory Madhuri Nieves BLACKSMITH HELPER 11/07/2016 Office visit Madhuri Nieves BLACKSMITH HELPER 03/13/2015 [facility] Skye Weaver MD 04/17/2013 Office visit Ruben Carpenter MD 04/03/2013 Office visit Ruben Carpenter MD 01/18/2012 Procedures Ruben Carpenter MD 09/22/2010 Office visit Ruben Carpenter MD 08/18/2010 Office visit Ruben Carpenter MD 07/22/2010 Office visit Ruben Carpenter MD 06/18/2010 Office visit Ruben Carpenter MD 06/08/2010 Procedures Ruben Carpenter MD 11/05/2009 Procedures Ruben Carpenter MD
--- OUTSIDE RECORDS SUMMARY | 2018-11-16 08:13 | XMS REPORT ---
Author Author Madhuri Nieves [facility] Address [address] [place], [place] [address] Care Team Providers Care Barrel Washer Name Role Phone Madhuri Nieves PCP Madhuri Nieves PreferredProvider Allergies and Adverse Reactions Name Reaction Notes PENICILLINS SULFA (SULFONAMIDES) thermasol preservative Plan of Treatment Planned Activity Comments Planned Date Planned Time Plan/Goal Urine Culture, [place] Count 03/28/2018 12:00 AM Medications Active Name Start Date Estimated Completion Date SIG Comments cyclobenzaprine 10 mg oral tablet take 0.5 tablet by oral route once a day (at bedtime) montelukast 10 mg oral tablet 01/09/2018 TAKE ONE TABLET BY MOUTH ONCE DAILY IN THE MORNING for 90 days Cipro 500 mg oral tablet 03/28/2018 03/31/2018 take 1 tablet (500 mg) by oral route 2 times per day for 3 days Name Start Date Expiration Date SIG [...] 6 hours as needed for 7 days Discontinued Name Start Date Discontinued Date SIG Comments Piroxicam Oral Capsule 20 mg 01/18/2012 take 1 capsule (20 mg) by oral route once daily Super [place]-3 Oral Capsule 1,000 mg 01/18/2012 take 2 [...] route 2 times per day with food Zithromax 250 mg oral tablet 11/09/2017 01/09/2018 [...] HC BMI BSA BMI Percentile O2 Sat(%) 03/28/2018 8:22:00 AM 124 mmHg 78 mmHg [...] 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[employer] Alcohol Use - Rare 3-4 drinks per [...] VENIPUNCTURE Reviewed 03/05/2018 12:00 AM MICROBIOLOGY PROCEDURE Returned 03/05/2018 12:00 AM Lincocin, Up to 300 Mg [facility]#[id number] Reviewed 03/28/2018 8:28 AM URINALYSIS AUTO W/O SCOPE Reviewed 03/28/2018 12:00 AM URINALYSIS AUTO W/O SCOPE Reviewed 04/17/2013 12:00 AM MUSC TEST DONE W/N TEST COMP Reviewed 04/17/2013 12:00 AM NRV CNDJ TST 3-4 STUDIES Reviewed 07/22/2010 12:00 AM Kenalog [id number] DOMINIC Reviewed 07/22/2010 12:00 AM INJ TENDON [...] Ab, Quant,IgM <0.80 RMSF, IgG, EIA Negative [facility] Spotted Fever,IgM 0.15 E. [...] mL/min/1.73meGFR AA * >60 MAGNESIUM 2.50 mg/dL 03/28/2018 8:28 AM Clarity Ur clear Urine-Color yellow Glucose Ur-sCnc negative Bilirub Ur Ql negative Ketones Ur Ql Strip negative Sp Gr Ur Qn 1.015 Hgb Ur Ql Strip trace pH Ur-LsCnc 6.0 Prot Ur Ql Strip negative Urobilinogen Ur- mCnc negative Nitrite Ur Ql Strip negative WBC # Ur negative History Of Immunizations Not available. History of Past Illness Name Date of [...] Wound abscess, sequela Mar 28 2018 8:28AM Payers Insurance Name Company Name Plan Name Plan Number Policy Number Policy Group Number Start Date Medicare [facility] Medicare [facility] [id number] Monday, 2017 AARP AARP [id number] N/A Medicare Part A Medicare - Lab/Xray [id number] N/A Medicare Part B Medicare Of [place] [id number] N/A [id number] N/A State Farm Insurance [employer] [id number] N/A History of Encounters Visit Date Visit Type Provider 03/28/2018 Office visit Madhuri Nieves PROCUREMENT SPECIALIST 03/13/2018 Office visit Madhuri Nieves PROCUREMENT SPECIALIST 03/08/2018 Office visit Madhuri Nieves PROCUREMENT SPECIALIST 03/05/2018 Office visit Madhuri Nieves PROCUREMENT SPECIALIST 02/22/2018 Office visit Madhuri Nieves PROCUREMENT SPECIALIST 01/25/2018 Hospital Skye Weaver MD 01/22/2018 Office visit Madhuri Nieves PROCUREMENT SPECIALIST 01/09/2018 Office visit Madhuri Nieves PROCUREMENT SPECIALIST 11/09/2017 Office visit Madhuri Nieves PROCUREMENT SPECIALIST 03/23/2017 Office visit Madhuri Nieves PROCUREMENT SPECIALIST 01/21/2017 Office visit Yesenia Dobbs PROCUREMENT SPECIALIST 11/24/2016 Laboratory Madhuri Nieves PROCUREMENT SPECIALIST 11/07/2016 Office visit Madhuri Nieves PROCUREMENT SPECIALIST 03/13/2015 Hospital Skye Weaver MD 04/17/2013 Office visit Ruben Carpenter MD 04/03/2013 Office visit Ruben Carpenter MD 01/18/2012 Procedures Ruben Carpenter MD 09/22/2010 Office visit Ruben Carpenter MD 08/18/2010 Office visit Ruben Carpenter MD 07/22/2010 Office visit Ruben Carpenter MD 06/18/2010 Office visit Ruben Carpenter MD 06/08/2010 Procedures Ruben Carpenter MD 11/05/2009 Procedures Ruben Carpenter MD
--- OUTSIDE RECORDS SUMMARY | 2018-11-16 08:14 | XMS REPORT ---
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[employer] Alcohol Use - Rare 3-4 drinks per [...] 12:00 AM Lincocin, Up to 300 Mg [facility]#[id number] Reviewed 03/28/2018 8:28 AM URINALYSIS AUTO W/O SCOPE Reviewed 03/28/2018 12:00 AM URINE CULTURE/COLONY COUNT Returned 03/28/2018 12:00 AM URINALYSIS AUTO W/O SCOPE Reviewed 04/17/2013 12:00 AM MUSC TEST DONE W/N TEST COMP Reviewed 04/17/2013 12:00 AM NRV CNDJ TST 3-4 STUDIES Reviewed 07/22/2010 12:00 AM Kenalog [id number] DOMINIC Reviewed 07/22/2010 12:00 AM INJ TENDON [...] Ab, Quant,IgM <0.80 RMSF, IgG, EIA Negative [facility] Spotted Fever,IgM 0.15 E. [...] S/P spinal surgery Mar 28 2018 8:28AM Payers Insurance Name Company Name Plan Name Plan Number Policy Number Policy Group Number Start Date Medicare RHC Medicare RHC [id number] Monday, 2017 AARP AARP [id number] N/A Medicare Part A Medicare - Lab/Xray [id number] N/A Medicare Part B Medicare [facility] [id number] N/A BCBS [employer] [place] [id number] N/A [place] Insurance State [facility] [id number] N/A History of Encounters Visit Date Visit Type Provider 03/28/2018 Office visit Madhuri Nieves MARBLE RUBBER 03/13/2018 Office visit Madhuri Nieves MARBLE RUBBER 03/08/2018 Office visit Madhuri Nieves MARBLE RUBBER 03/05/2018 Office visit Madhuri Nieves MARBLE RUBBER 02/22/2018 Office visit Madhuri Nieves MARBLE RUBBER 01/25/2018 Hospital Skye Weaver MD 01/22/2018 Office visit Madhuri Nieves MARBLE RUBBER 01/09/2018 Office visit Madhuri Nieves MARBLE RUBBER 11/09/2017 Office visit Madhuri Nieves MARBLE RUBBER 03/23/2017 Office visit Madhuri Nieves MARBLE RUBBER 01/21/2017 Office visit Yesenia Dobbs MARBLE RUBBER 11/24/2016 Laboratory Madhuri Nieves MARBLE RUBBER 11/07/2016 Office visit Madhuri Nieves MARBLE RUBBER 03/13/2015 Hospital Skye Weaver MD 04/17/2013 Office visit Ruben Carpenter MD 04/03/2013 Office visit Ruben Carpenter MD 01/18/2012 Procedures Ruben Carpenter MD 09/22/2010 Office visit Ruben Carpenter MD 08/18/2010 Office visit Ruben Carpenter MD 07/22/2010 Office visit Ruben Carpenter MD 06/18/2010 Office visit Ruben Carpenter MD 06/08/2010 Procedures Ruben Carpenter MD 11/05/2009 Procedures Ruben Carpenter MD
[2018-11-16] MEDS ORDERED: MOXIFLOXACIN OPHTH SOLN 5 MG/ML 0.3 ML SYRINGE OP ONE (08:15)
[2018-11-16] MEDS ORDERED: LIDOCAINE PF 1% 2 ML AMP IR PRN (08:15)
[2018-11-16] MEDS ORDERED: POVIDONE (BETADINE) OPHTH SOLN 5% 30 ML OP ONE (08:15)
[2018-11-16] MEDS ORDERED: TIMOLOL MALEATE 0.5% 5 ML (TIMOPTIC) BTL OU PRN (08:15)
--- OUTSIDE RECORDS SUMMARY | 2018-11-16 08:15 | XMS REPORT ---
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 chaffeensis [...] mL/min/1.73meGFR AA * >60 MAGNESIUM 2.50 mg/dL History Of Immunizations Not available. History of [...] Wound abscess, sequela Mar 13 2018 11:09AM Payers Insurance Name Company Name Plan Name Plan Number Policy Number Policy Group Number Start Date Medicare RHC Medicare RHC [id number] Monday, 2017 AARP AARP [id number] N/A Medicare Part A Medicare - Lab/Xray [id number] N/A Medicare Part B Medicare Of [place] [id number] N/A [id number] N/A State [employer] Insurance [employer] [id number] N/A History of Encounters Visit Date Visit Type Provider 03/28/2018 Office visit Madhuri Nieves INKING MACHINE TENDER 03/13/2018 Office visit Madhuri Nieves INKING MACHINE TENDER 03/08/2018 Office visit Madhuri Nieves INKING MACHINE TENDER 03/05/2018 Office visit Madhuri Nieves INKING MACHINE TENDER 02/22/2018 Office visit Madhuri Nieves INKING MACHINE TENDER 01/25/2018 [facility] Skye Weaver MD 01/22/2018 Office visit Madhuri Nieves INKING MACHINE TENDER 01/09/2018 Office visit Madhuri Nieves INKING MACHINE TENDER 11/09/2017 Office visit Madhuri Nieves INKING MACHINE TENDER 03/23/2017 Office visit Madhuri Nieves INKING MACHINE TENDER 01/21/2017 Office visit Yesenia Dobbs INKING MACHINE TENDER 11/24/2016 Laboratory Madhuri Nieves INKING MACHINE TENDER 11/07/2016 Office visit Madhuri Nieves INKING MACHINE TENDER 03/13/2015 Hospital Skye Weaver MD 04/17/2013 Office visit Ruben Carpenter MD 04/03/2013 Office visit Ruben Carpenter MD 01/18/2012 Procedures Ruben Carpenter MD 09/22/2010 Office visit Ruben Carpenter MD 08/18/2010 Office visit Ruben Carpenter MD 07/22/2010 Office visit Ruben Carpenter MD 06/18/2010 Office visit Ruben Carpenter MD 06/08/2010 Procedures Ruben Carpenter MD 11/05/2009 Procedures Ruben Carpenter MD
--- OUTSIDE RECORDS SUMMARY | 2018-11-16 08:15 | XMS REPORT ---
Author Author Madhuri Nieves [facility] Address [address] [place], [place] [address] Care Team Providers Care Furnace Repair Mechanic Name Role Phone Madhuri Nieves PCP [phone] Madhuri Nieves PreferredProvider [phone] Allergies and Adverse Reactions Name Reaction Notes PENICILLINS SULFA (SULFONAMIDES) thermasol preservative Plan of Treatment Planned Activity Comments Planned Date Planned Time Plan/Goal Complete blood count (CBC) with differential count 03/23/2017 12:00 AM Comprehensive metabolic panel 03/23/2017 12:00 AM Injection, Subcutaneous/IM 03/23/2017 12:00 AM Tick-borne disease panel 03/23/2017 12:00 AM Tick-borne disease panel 03/23/2017 12:00 AM Medications Active Name Start Date Estimated Completion Date SIG Comments Transderm-Scop 1.5 mg (1 mg over 3 days) transdermal patch 3 day 02/13/2017 apply 1 patch by transdermal route to the hairless area behind 1 ear at least 4 hr before effect is required; reapply every 3 days as needed naproxen 500 mg oral tablet take 1 tablet (500 mg) by oral route 2 times per day with food cyclobenzaprine 10 mg oral tablet take 0.5 tablet by oral route once a day (at bedtime) doxycycline hyclate 100 mg oral tablet 03/23/2017 04/02/2017 1 TABLET 2XD FOR 10 DAYS Name Start Date Expiration Date SIG Comments [...] 2 times per day for 30 days montelukast 10 mg oral tablet 11/07/2016 02/05/2017 take 1 tablet (10 mg) by oral route once daily in the MORNING for 30 days azithromycin 250 mg oral tablet 01/21/2017 01/26/2017 take 2 tablets (500 mg) by oral route once daily for 1 day then 1 tablet (250 mg) by oral route once daily for 4 days Discontinued Name Start Date Discontinued Date SIG Comments Piroxicam Oral Capsule 20 mg 01/18/2012 take 1 capsule (20 mg) by oral route once daily Super [place]-3 Oral Capsule 1,000 mg 01/18/2012 take 2 [...] by oral route 2 times per day Problem List Description Status Onset Numbness and Tingling Active lumbar back pain Active cervical neck pain Active Postviral fatigue syndrome Active 11/07/2016 Vital Signs Date Time BP-Sys(mm[Hg] BP-Jacqueline(mm[Hg]) HR(bpm) RR(rpm) Temp WT HT HC BMI BSA BMI Percentile O2 Sat(%) 03/23/2017 8:49:00 AM 124 mmHg 84 mmHg [...] rpm 97.9 F 158.375 lbs 65 in 26.35 kg/m2 1.82 m2 09/22/2010 8:10:00 AM 122 mmHg [...] AM ROUTINE VENIPUNCTURE Reviewed 03/23/2017 12:00 AM ROUTINE VENIPUNCTURE Reviewed 04/17/2013 12:00 AM MUSC TEST DONE W/N TEST COMP Reviewed 04/17/2013 12:00 AM NRV CNDJ TST 3-4 STUDIES Reviewed 07/22/2010 12:00 AM Kenalog [id number] DOMINIC Reviewed 07/22/2010 12:00 AM INJ TENDON [...] 0.09 #BASO 0.06 MANUAL DIFF NOT IND History Of Immunizations Not available. History of [...] both eustachian tubes Mar 23 2017 8:51AM Payers Insurance Name Company Name Plan Name Plan Number Policy Number Policy Group Number Start Date [id number] N/A State Farm Insurance State Farm [id number] N/A History of Encounters Visit Date Visit Type Provider 03/23/2017 Office visit Madhuri Nieves ITEM PROCESSING CLERK 01/21/2017 Office visit Yesenia Dobbs ITEM PROCESSING CLERK 11/24/2016 Laboratory Madhuri Nieves ITEM PROCESSING CLERK 11/07/2016 Office visit Madhuri Nieves ITEM PROCESSING CLERK 03/13/2015 Hospital Skye Weaver MD 04/17/2013 Office visit Ruben Carpenter MD 04/03/2013 Office visit Ruben Carpenter MD 01/18/2012 Procedures Ruben Carpenter MD 09/22/2010 Office visit Ruben Carpenter MD 08/18/2010 Office visit Ruben Carpenter MD 07/22/2010 Office visit Ruben Carpenter MD 06/18/2010 Office visit Ruben Carpenter MD 06/08/2010 Procedures Ruben Carpenter MD 11/05/2009 Procedures Ruben Carpenter MD
--- OUTSIDE RECORDS SUMMARY | 2018-11-16 08:16 | XMS REPORT ---
Author Author Madhuri Nieves [facility] Address [address] [place], [place] [address] Care Team Providers Care Lapel Padder Blindstitch Name Role Phone Madhuri Nieves PCP Madhuri [...] DAILY IN THE MORNING for 90 days clindamycin HCl 300 mg oral capsule 03/05/2018 [...] 6 hours as needed for 7 days Name Start Date Expiration [...] 04/02/2017 1 TABLET 2XD FOR 10 DAYS Discontinued Name Start Date Discontinued Date SIG Comments Piroxicam Oral Capsule 20 mg 01/18/2012 take 1 capsule (20 mg) by oral route once daily Super [place]-3 Oral Capsule 1,000 mg 01/18/2012 take 2 [...] HC BMI BSA BMI Percentile O2 Sat(%) 03/08/2018 9:52:00 AM 122 mmHg 72 mmHg [...] 12:00 AM Lincocin, Up to 300 Mg [facility][NOTE 3]#[id number] Reviewed 04/17/2013 12:00 AM MUSC TEST DONE W/N TEST COMP Reviewed 04/17/2013 12:00 AM NRV CNDJ TST 3-4 STUDIES Reviewed 07/22/2010 12:00 AM Guimatt [id number] DOMINIC Reviewed 07/22/2010 12:00 AM INJ TENDON [...] Ab, Quant,IgM <0.80 RMSF, IgG, EIA Negative [facility] Sp[facility],IgM 0.15 E. chaffeensis (HME) IgGTiter [...] culture positive Mar 08 2018 9: 53AM Payers Insurance Name Company Name Plan Name Plan Number Policy Number Policy Group Number Start Date Medicare [facility] Medicare [facility] [id number] Monday, 2017 AARP AARP [id number] N/A Medicare Part A Medicare - Lab/Xray [id number] N/A Medicare Part B Medicare Of [place] [id number] N/A BCBS Bcbs [facility] [id number] N/A State [facility] Insurance State [facility] [id number] N/A History of Encounters Visit Date Visit Type Provider 03/08/2018 Office visit Madhuri Kowalskirachel HIM TECH 03/05/2018 Office visit Madhuri Nieves HIM TECH 02/22/2018 Office visit Madhuri Nieves HIM TECH 01/25/2018 Hospital Skye Weaver MD 01/22/2018 Office visit Madhuri Nieves HIM TECH 01/09/2018 Office visit Madhuri Nieves HIM TECH 11/09/2017 Office visit Madhuri Nieves HIM TECH 03/23/2017 Office visit Madhuri Nieves HIM TECH 01/21/2017 Office visit Yesenia Dobbs HIM TECH 11/24/2016 Laboratory Madhuri Nieves HIM TECH 11/07/2016 Office visit Madhuri Nieves HIM TECH 03/13/2015 Hospital Skye Weaver MD 04/17/2013 Office visit Ruben Carpenter MD 04/03/2013 Office visit Ruben Carpenter MD 01/18/2012 Procedures Ruben Carpenter MD 09/22/2010 Office visit Ruben Carpenter MD 08/18/2010 Office visit Ruben Carpenter MD 07/22/2010 Office visit Ruben Carpenter MD 06/18/2010 Office visit Ruben Carpenter MD 06/08/2010 Procedures Ruben Carpenter MD 11/05/2009 Procedures Ruben Carpenter MD
--- OUTSIDE RECORDS SUMMARY | 2018-11-16 08:16 | XMS REPORT ---
Author Author Madhuri Nieves [facility] Address [address] [place], [place] [address] Care Team Providers Care Staffing Assistant Name Role Phone Madhuri Nieves PCP [phone] Madhuri Nieves PreferredProvider [phone] Allergies and Adverse Reactions Name Reaction Notes PENICILLINS SULFA (SULFONAMIDES) thermasol preservative Plan of Treatment Not available. Medications Active Name Start Date Estimated Completion Date SIG Comments fluticasone 50 mcg/actuation nasal spray,suspension 11/07/2016 01/06/2017 inhale 1 spray (50 mcg) in each nostril by intranasal route 2 times per day for 30 days montelukast 10 mg oral tablet 11/07/2016 02/05/2017 take 1 tablet (10 mg) by oral route once daily in the MORNING for 30 days Name Start Date Expiration Date SIG [...] by oral route daily for 30 days Discontinued Name Start Date Discontinued Date SIG Comments Piroxicam Oral Capsule 20 mg 01/18/2012 take 1 capsule (20 mg) by oral route once daily Super [place]-3 Oral Capsule 1,000 mg 01/18/2012 take 2 [...] HC BMI BSA BMI Percentile O2 Sat(%) 11/07/2016 3:18:00 PM 128 mmHg 80 mmHg [...] 11/07/2016 12:00 AM LOC-ELIZABETH CAPSID VCA Reviewed 04/17/2013 12:00 AM MUSC TEST DONE W/N TEST COMP Reviewed 04/17/2013 12:00 AM NRV CNDJ TST 3-4 STUDIES Reviewed 07/22/2010 12:00 AM Yrn [id number] DOMINIC Reviewed 07/22/2010 12:00 AM INJ TENDON SHEATH/LIGAMENT Reviewed 11/05/2009 12:00 AM MUSCLE TEST ONE LIMB Reviewed 11/05/2009 12:00 AM NERVE CONDUCTION, MOTOR Reviewed 11/05/2009 12:00 AM NERVE CONDUCTION, SENSORY Reviewed Results Summary Data and Description Results 11/07/2016 5:56 PM WBC [...] 2016 12:42PM Polycythemia Nov 24 2016 12:42PM Payers Insurance Name Company Name Plan Name Plan Number Policy Number Policy Group Number Start Date BCBS Bcbs [facility] [id number] N/A State Farm Insurance [employer] [id number] N/A History of Encounters Visit Date Visit Type Provider 11/24/2016 Laboratory Madhuri Nieves WOOL SHEARING SUPERVISOR 11/07/2016 Office visit Madhuri Denson Meghaclaryrachel WOOL SHEARING SUPERVISOR 03/13/2015 Hospital Skye Weaver MD 04/17/2013 Office visit Ruben Carpenter MD 04/03/2013 Office visit Ruben Carpenter MD 01/18/2012 Procedures Ruben Carpenter MD 09/22/2010 Office visit Ruben Carpenter MD 08/18/2010 Office visit Ruben Carpenter MD 07/22/2010 Office visit Ruben Carpenter MD 06/18/2010 Office visit Ruben Carpenter MD 06/08/2010 Procedures Ruben Carpenter MD 11/05/2009 Procedures Ruben Carpenter MD
--- OUTSIDE RECORDS SUMMARY | 2018-11-16 08:17 | XMS REPORT ---
Author Author Madhuri Nieves [facility] Address [address] [place], [place] [address] Care Team Providers Care Spray Drier Operator Name Role Phone Madhuri Nieves PCP Madhuri Nieves PreferredProvider Allergies and Adverse Reactions Name Reaction Notes PENICILLINS SULFA (SULFONAMIDES) thermasol preservative Plan of Treatment Planned Activity Comments Planned Date Planned Time Plan/Goal Chest x-ray, PA and lateral 01/22/2018 12:00 AM EKG (12-lead electrocardiogram) 01/22/2018 12:00 AM US ABD LTD (SINGLE ORGAN) 01/22/2018 12:00 AM Bone Density 01/22/2018 12:00 AM Medications Active Name Start Date [...] mg) by oral route once daily Super [place]-3 Oral Capsule 1,000 mg 01/18/2012 take 2 [...] HC BMI BSA BMI Percentile O2 Sat(%) 01/22/2018 1:40:00 PM 124 mmHg 74 mmHg [...] COMPREHEN METABOLIC PANEL Reviewed 01/22/2018 12:00 AM URINALYSIS AUTO W/O SCOPE Reviewed 01/22/2018 12:00 AM ASSAY OF MAGNESIUM Reviewed 01/22/2018 12:00 AM COLLECTION VENOUS BLOOD VENIPUNCTURE Reviewed 04/17/2013 12:00 AM MUSC TEST DONE W/N TEST COMP Reviewed 04/17/2013 12:00 AM NRV CNDJ TST 3-4 STUDIES Reviewed 07/22/2010 12:00 AM Kenalog [id number] DOMINIC Reviewed 07/22/2010 12:00 AM INJ TENDON [...] Ab, Quant,IgM <0.80 RMSF, IgG, EIA Negative [facility] Spotted Fever,IgM 0.15 E. chaffeensis [...] 2018 1:44PM Menopause Jan 22 2018 1:44PM Payers Insurance Name Company Name Plan Name Plan Number Policy Number Policy Group Number Start Date Medicare RHC Medicare RHC [id number] N/A AARP AARP [id number] N/A Medicare Part A Medicare - Lab/Xray [id number] N/A BCBS Bcbs [facility] [id number] N/A [place] [id number] N/A History of Encounters Visit Date Visit Type Provider 01/22/2018 Office visit Madhuri GraceKwan Nieves CEMENT MASON MAINTENANCE 01/09/2018 Office visit Madhuri Denson Meghaclaryrachel CEMENT [place]ON MAINTENANCE 11/09/2017 Office visit Madhuri GraceKwan Nieves CEMENT [place]ON MAINTENANCE 03/23/2017 Office visit Madhuri GraceKwan Nieves CEMENT [place]ON MAINTENANCE 01/21/2017 Office visit Yesenia Dobbs CEMENT [place]ON MAINTENANCE 11/24/2016 Laboratory Madhuri GraceKwan Nieves CEMENT [place]ON MAINTENANCE 11/07/2016 Office visit Madhuri Janiya Nieves CEMENT [place]ON MAINTENANCE 03/13/2015 Hospital Skye Weaver MD 04/17/2013 Office visit Ruben Carpenter MD 04/03/2013 Office visit Ruben Carpenter MD 01/18/2012 Procedures Ruben Carpenter MD 09/22/2010 Office visit Ruben Carpenter MD 08/18/2010 Office visit Ruben Carpenter MD 07/22/2010 Office visit Ruben Carpenter MD 06/18/2010 Office visit Ruben Carpenter MD 06/08/2010 Procedures Ruben Carpenter MD 11/05/2009 Procedures Ruben Carpenter MD
--- OUTSIDE RECORDS SUMMARY | 2018-11-16 08:17 | XMS REPORT ---
Author Yesenia Lopez [facility] Address [address] [place], [place] [address] Care Team Providers Care Virtual Recruiter Name Role Phone Yesenia Dobbs PCP Lizbeth Nataly PreferredProvider [phone] Allergies and Adverse Reactions Name Reaction Notes PENICILLINS SULFA (SULFONAMIDES) thermasol preservative Plan of Treatment Not available. Medications Active Name Start Date Estimated Completion Date SIG Comments montelukast 10 mg oral tablet 11/07/2016 02/05/2017 [...] 2 times per day for 30 days Discontinued Name Start Date Discontinued Date SIG Comments Piroxicam Oral Capsule 20 mg 01/18/2012 take 1 capsule (20 mg) by oral route once daily Super [place]-3 Oral Capsule 1,000 mg 01/18/2012 take 2 [...] HC BMI BSA BMI Percentile O2 Sat(%) 01/21/2017 10:04:00 AM 136 mmHg 80 mmHg [...] Reviewed 12/04/2016 12:00 AM ROUTINE VENIPUNCTURE Reviewed 04/17/2013 12:00 AM MUSC TEST DONE W/N TEST COMP Reviewed 04/17/2013 12:00 AM NRV CNDJ TST 3-4 STUDIES Reviewed 07/22/2010 12:00 AM Guimatt [id number] DOMINIC Reviewed 07/22/2010 12:00 AM INJ TENDON [...] Upper Respiratory Infection Jan 21 2017 10:06AM Payers Insurance Name Company Name Plan Name Plan Number Policy Number Policy Group Number Start Date BCBS Bcbs [facility] [id number] N/A State [place] Insurance [employer] [id number] N/A History of Encounters Visit Date Visit Type Provider 01/21/2017 Office visit Yesenia Dobbs MANAGER OF BUSINESS OPERATIONS 11/24/2016 Laboratory Madhuri Nieves MANAGER OF BUSINESS OPERATIONS 11/07/2016 Office visit Madhuri Nieves MANAGER OF BUSINESS OPERATIONS 03/13/2015 Hospital Skye Weaver MD 04/17/2013 Office visit Ruben Carpenter MD 04/03/2013 Office visit Ruben Carpenter MD 01/18/2012 Procedures Ruben Carpenter MD 09/22/2010 Office visit Ruben Carpenter MD 08/18/2010 Office visit Ruben Carpenter MD 07/22/2010 Office visit Ruben Carpenter MD 06/18/2010 Office visit Ruben Carpenter MD 06/08/2010 Procedures Ruben Carpenter MD 11/05/2009 Procedures Ruben Carpenter MD
--- OUTSIDE RECORDS SUMMARY | 2018-11-16 08:18 | XMS REPORT ---
Author Author Madhuri Nieves [facility] Address [address] [place], [place] [address] Care Team Providers Care Purchasing Clerk Name Role Phone Madhuri Nieves PCP Madhuri [...] mg) by oral route once daily Super [place]-3 Oral Capsule 1,000 mg 01/18/2012 take 2 [...] HC BMI BSA BMI Percentile O2 Sat(%) 02/22/2018 1:32:00 PM 124 mmHg 78 mmHg [...] 3-4 STUDIES Reviewed 07/22/2010 12:00 AM Yrn [id number] DOMINIC Reviewed 07/22/2010 12:00 AM INJ TENDON [...] of lumbar spine Feb 22 2018 1:33PM Payers Insurance Name Company Name Plan Name Plan Number Policy Number Policy Group Number Start Date Medicare RHC Medicare RHC [id number] N/A AARP AARP [id number] N/A Medicare Part A Medicare - Lab/Xray [id number] N/A Medicare Part B Medicare Of [place] [id number] N/[facility] [id number] N/A State Farm Insurance State [facility] [id number] N/A History of Encounters Visit Date Visit Type Provider 02/22/2018 Office visit Madhuri Neives PARKING SUPERVISOR 01/25/2018 Hospital Skye Weaver MD 01/22/2018 Office visit Madhuri Nieves PARKING SUPERVISOR 01/09/2018 Office visit Madhuri Nieves PARKING SUPERVISOR 11/09/2017 Office visit Madhuri Nieves PARKING SUPERVISOR 03/23/2017 Office visit Madhuri Nieves PARKING SUPERVISOR 01/21/2017 Office visit Yesenia Dobbs PARKING SUPERVISOR 11/24/2016 Laboratory Madhuri Nieves PARKING SUPERVISOR 11/07/2016 Office visit Madhuri Denson Meghatomasz PARKING SUPERVISOR 03/13/2015 Hospital Skye Weaver MD 04/17/2013 [...]
--- OUTSIDE RECORDS SUMMARY | 2018-11-16 08:19 | XMS REPORT ---
Author Author Madhuri Nieves [facility] Address [address] [place], [place] [address] Care Team Providers Care C2 Tactical Analysis Technician Name Role Phone Madhuri Nieves PCP Madhuri [...] mg) by oral route once daily Super [place]-3 Oral Capsule 1,000 mg 01/18/2012 take 2 [...] 12:00 AM Lincocin, Up to 300 Mg [facility]#[id number] Reviewed 04/17/2013 12:00 AM MUSC TEST DONE W/N TEST COMP Reviewed 04/17/2013 12:00 AM NRV CNDJ TST 3-4 STUDIES Reviewed 07/22/2010 12:00 AM Guimatt [id number] DOMINIC Reviewed 07/22/2010 12:00 AM INJ TENDON [...] Ab, Quant,IgM <0.80 RMSF, IgG, EIA Negative [facility] Sp[facility],IgM 0.15 E. chaffeensis (HME) [...] Number Policy Group Number Start Date Medicare [facility] Medicare [facility] [id number] Monday, 2017 AARP AARP [id number] N/A Medicare Part A Medicare - Lab/Xray [id number] N/A Medicare Part B Medicare Of [place] [id number] N/A BCBS Bcbs [facility] [id number] N/A State [facility] Insurance State [facility] [id number] N/A History of Encounters Visit Date Visit Type Provider 03/08/2018 Office visit Madhuri Kowalskirachel BOBBIN CLEANER HAND 03/05/2018 Office visit Madhuri Nieves BOBBIN CLEANER HAND 02/22/2018 Office visit Madhuri Nieves BOBBIN CLEANER HAND 01/25/2018 Hospital Skye Weaver MD 01/22/2018 Office visit Madhuri Nieves BOBBIN CLEANER HAND 01/09/2018 Office visit Madhuri Nieves BOBBIN CLEANER HAND 11/09/2017 Office visit Madhuri Nieves BOBBIN CLEANER HAND 03/23/2017 Office visit Madhuri Nieves BOBBIN CLEANER HAND 01/21/2017 Office visit Yesenia Dobbs BOBBIN CLEANER HAND 11/24/2016 Laboratory Madhuri Nieves BOBBIN CLEANER HAND 11/07/2016 Office visit Madhuri Nieves BOBBIN CLEANER HAND 03/13/2015 Hospital Skye Weaver MD 04/17/2013 Office visit Ruben Carpenter MD 04/03/2013 Office visit Ruben Carpenter MD 01/18/2012 Procedures Ruben Carpenter MD 09/22/2010 Office visit Ruben Carpenter MD 08/18/2010 Office visit Ruben Carpenter MD 07/22/2010 Office visit Ruben Carpenter MD 06/18/2010 Office visit Ruben Carpenter MD 06/08/2010 Procedures Ruben Carpenter MD 11/05/2009 Procedures Ruben Carpenter MD
--- OUTSIDE RECORDS SUMMARY | 2018-11-16 08:19 | XMS REPORT ---
Author Author Madhuri Nieves [facility] Address [address] [place], [place] [address] Care Team Providers Care Coater Operator Name Role Phone Madhuri Nieves PCP Madhuri Nieves PreferredProvider Allergies and Adverse Reactions Name Reaction Notes PENICILLINS SULFA (SULFONAMIDES) thermasol preservative Plan of Treatment Not available. Medications Active Name Start Date Estimated Completion Date SIG Comments naproxen 500 mg oral tablet take 1 tablet (500 mg) by oral route 2 times per day with food cyclobenzaprine 10 mg oral tablet take 0.5 tablet by oral route once a day (at bedtime) montelukast 10 mg oral tablet 06/12/2017 12/09/2017 take 1 tablet (10 mg) by oral route once daily in the MORNING for 30 days montelukast 10 mg oral tablet 06/12/2017 TAKE ONE TABLET BY MOUTH ONCE DAILY IN THE MORNING Zithromax 250 mg oral tablet 11/09/2017 take 2 tablets (500 mg) by oral [...] mg) by oral route once daily Super [place]-3 Oral Capsule 1,000 mg 01/18/2012 take 2 [...] required; reapply every 3 days as needed Problem List Description Status Onset Numbness and Tingling Active lumbar back pain Active cervical neck pain Active 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 chaffeensis (HME) IgGTiter Negative titerE. chaffeensis (HME) IgMTiter Negative History Of Immunizations Not available. History of [...] tube disorder, bilateral Nov 09 2017 1:27PM Payers Insurance Name Company Name Plan Name Plan Number Policy Number Policy Group Number Start Date [id number] N/A Medicare RHC Medicare RHC [id number] N/A AARP AARP [id number] N/A Medicare Part A Medicare - Lab/Xray [id number] N/A State Farm Insurance [employer] [id number] N/A History of Encounters Visit Date Visit Type Provider 11/09/2017 Office visit Madhuri Nieves INTERNAL SALES ENGINEER 03/23/2017 Office visit Madhuri Nieves INTERNAL SALES ENGINEER 01/21/2017 Office visit Yesenia Dobbs INTERNAL SALES ENGINEER 11/24/2016 Laboratory Madhuri Nieves INTERNAL SALES ENGINEER 11/07/2016 Office visit Madhuri Nieves INTERNAL SALES ENGINEER 03/13/2015 [facility] Skye Weaver MD 04/17/2013 Office visit Ruben Carpenter MD 04/03/2013 Office visit Ruben Carpenter MD 01/18/2012 Procedures Ruben Carpenter MD 09/22/2010 Office visit Ruben Carpenter MD 08/18/2010 Office visit Ruben Carpenter MD 07/22/2010 Office visit Ruben Carpenter MD 06/18/2010 Office visit Ruben Carpenter MD 06/08/2010 Procedures Ruben Carpenter MD 11/05/2009 Procedures Ruben Carpenter MD
[2018-11-16 08:20] VITALS: BP 139/81
[2018-11-16] MEDS: TETRACAINE 0.5% OPHTH SOLN 4 ML BTL (SINGLE DOSE ONLY) OU PRN ×4 (08:20→08:36)
--- OUTSIDE RECORDS SUMMARY | 2018-11-16 08:20 | XMS REPORT ---
Author Author Madhuri Nieves [facility] Address [address] [place], [place] [address] Care Team Providers Care Flue Blower Name Role Phone Madhuri Nieves PCP [phone] Madhuri Nieves PreferredProvider [phone] Allergies and Adverse Reactions Name Reaction Notes [...] mg) by oral route once daily Super [place]-3 Oral Capsule 1,000 mg 01/18/2012 take 2 [...] 01/18/2012 12:00 AM NERVE CONDUCTION, SENSORY Reviewed 11/07/2016 12:00 AM COMPLETE CBC W/AUTO DIFF WBC Reviewed 11/07/2016 12:00 AM COMPREHEN METABOLIC PANEL Reviewed 11/07/2016 12:00 AM LOC-ELIZABETH ANTIBODY Reviewed 11/07/2016 12:00 AM LOC-ELIZABETH NUCLEAR ANTIGEN Reviewed 11/07/2016 12:00 AM LOC-ELIZABETH CAPSID VCA Reviewed 11/24/2016 12:00 AM COMPLETE CBC W/AUTO DIFF WBC Reviewed 11/24/2016 12:00 AM ROUTINE VENIPUNCTURE Reviewed 04/17/2013 12:00 AM MUSC TEST DONE W/N TEST COMP Reviewed 04/17/2013 12:00 AM NRV CNDJ TST 3-4 STUDIES Reviewed 07/22/2010 12:00 AM Yrn [id number] DOMINIC Reviewed 07/22/2010 12:00 AM INJ TENDON [...] Policy Group Number Start Date BCBS Bcbs [facility] [id number] N/A State Farm Insurance [employer] [id number] N/A History of Encounters Visit Date Visit Type Provider 11/24/2016 Laboratory Madhuri Nieves EMT DISPATCHER 11/07/2016 Office visit Madhuri Denson Meghaclaryrachel EMT DISPATCHER 03/13/2015 Hospital Skye Weaver MD 04/17/2013 Office visit Ruben Carpenter MD 04/03/2013 Office visit Ruben Carpenter MD 01/18/2012 Procedures Ruben Carpenter MD 09/22/2010 Office visit Ruben Carpenter MD 08/18/2010 Office visit Ruben Carpenter MD 07/22/2010 Office visit Ruben Carpenter MD 06/18/2010 Office visit Ruben Carpenter MD 06/08/2010 Procedures Ruben Carpneter MD 11/05/2009 Procedures Ruben Carpenter MD
--- OUTSIDE RECORDS SUMMARY | 2018-11-16 08:20 | XMS REPORT ---
Author Author Madhuri Nieves [facility] Address [address] [place], [place] [id number] Care Team Providers Care Computer Systems Design Analyst Name Role Phone Madhuri Nieves PCP [...] mg) by oral route once daily Super [place]-3 Oral Capsule 1,000 mg 01/18/2012 take 2 [...] AM Lincocin, Up to 300 Mg [facility]#[id number] Reviewed 04/17/2013 12:00 AM MUSC TEST DONE W/N TEST COMP Reviewed 04/17/2013 12:00 AM NRV CNDJ TST 3-4 STUDIES Reviewed 07/22/2010 12:00 AM Guimatt [id number] DOMINIC Reviewed 07/22/2010 12:00 AM INJ TENDON [...] Ab, Quant,IgM <0.80 RMSF, IgG, [facility],IgM 0.15 E. chaffeensis (HME) [...] Number Policy Group Number Start Date Medicare [facility] Medicare [facility] [id number] Monday, 2017 AARP AARP [id number] N/A Medicare Part A Medicare - Lab/Xray [id number] N/A Medicare Part B Medicare Of [place] [id number] N/A BCBS [facility] [id number] N/A State [facility] Insurance [facility] [id number] N/A History of Encounters Visit Date Visit Type Provider 03/08/2018 Office visit Madhuri Kowalskirachel SENIOR PHP DEVELOPER 03/05/2018 Office visit Madhuri Nieves SENIOR PHP DEVELOPER 02/22/2018 Office visit Madhuri Nivees SENIOR PHP DEVELOPER 01/25/2018 Hospital Skye Weaver MD 01/22/2018 Office visit Madhuri Nieves SENIOR PHP DEVELOPER 01/09/2018 Office visit Madhuri Nieves SENIOR PHP DEVELOPER 11/09/2017 Office visit Madhuri Nieves SENIOR PHP DEVELOPER 03/23/2017 Office visit Madhuri Nieves SENIOR PHP DEVELOPER 01/21/2017 Office visit Yesenia Dobbs SENIOR PHP DEVELOPER 11/24/2016 Laboratory Madhuri Nieves SENIOR PHP DEVELOPER 11/07/2016 Office visit Madhuri Nieves SENIOR PHP DEVELOPER 03/13/2015 Hospital Skye Weaver MD 04/17/2013 Office visit Ruben Carpenter MD 04/03/2013 Office visit Ruben Carpenter MD 01/18/2012 Procedures Ruben Carpenter MD 09/22/2010 Office visit Ruben Carpenter MD 08/18/2010 Office visit Ruben Carpenter MD 07/22/2010 Office visit Ruben Carpenter MD 06/18/2010 Office visit Ruben Carpenter MD 06/08/2010 Procedures Ruben Carpenter MD 11/05/2009 Procedures Ruben Carpenter MD
--- OUTSIDE RECORDS SUMMARY | 2018-11-16 08:21 | XMS REPORT ---
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 chaffeensis (HME) [...] Number Policy Group Number Start Date Medicare [facility] Medicare [facility] [id number] Monday, 2017 AARP AARP [id number] N/A Medicare Part A Medicare - Lab/Xray [id number] N/A Medicare Part B Medicare Of [place] [id number] N/[id number] N/A [employer] [id number] N/A History of Encounters Visit Date Visit Type Provider 03/28/2018 Office visit Madhuri Nieves EXPANDER 03/13/2018 Office visit Madhuri Nieves EXPANDER 03/08/2018 Office visit Madhuri Nieves EXPANDER 03/05/2018 Office visit Madhuri Nieves EXPANDER 02/22/2018 Office visit Madhuri Nieves EXPANDER 01/25/2018 Hospital Skye Weaver MD 01/22/2018 Office visit Madhuri Nieves EXPANDER 01/09/2018 Office visit Madhuri Nieves EXPANDER 11/09/2017 Office visit Madhuri Nieves EXPANDER 03/23/2017 Office visit Madhuri Nieves EXPANDER 01/21/2017 Office visit Yesenia Dobbs EXPANDER 11/24/2016 Laboratory Madhuri Nieves EXPANDER 11/07/2016 Office visit Madhuri Nieves EXPANDER 03/13/2015 Hospital Skye Weaver MD 04/17/2013 Office visit Ruben Carpenter MD 04/03/2013 Office visit Ruben Carpenter MD 01/18/2012 Procedures Ruben Carpenter MD 09/22/2010 Office visit Ruben Carpenter MD 08/18/2010 Office visit Ruben Carpenter MD 07/22/2010 Office visit Ruben Carpenter MD 06/18/2010 Office visit Ruben Carpenter MD 06/08/2010 Procedures Ruben Carpenter MD 11/05/2009 Procedures Ruben Carpenter MD
--- OUTSIDE RECORDS SUMMARY | 2018-11-16 08:22 | XMS REPORT | Continuity of Care Document ---
Author Author [facility] Organization [facility] Address Unknown Phone Unavailable Allergies Active Description Code Type Severity Reaction Onset Reported/Identified Relationship to Patient Clinical Status Yes PCN Drug Allergy N/A N/A Yes SULFA Drug Allergy N/A N/A Yes THIMEROSAL [id number] Drug Allergy N/A N/A Yes PCN (penicillin) [id number] CLASS N/A N/A Yes SULFA (sulfonamide) [id number] CLASS N/A N/A Yes PENICILLIN 13193 SWELLING 03/20/2015 Yes THERMOSOL PRESERVATIVES NOCHK 2 Skin Rashes/Hives 03/20/2015 Yes Sulfa (Sulfonamide Antibiotics) Drug Allergy Unknown N/A 04/01/2015 Yes Thermasol Preservative Environmental Allergy Unknown hives and swelling 04/01/2015 Yes Penicillins Drug Allergy Unknown swelling 06/23/2016 Yes SULFA-TRIP [id number] Unknown 08/22/2016 Yes PCN PCN Drug Allergy N/A Anaphylaxis 09/07/2017 Yes Sulfa Antibiotics Miscellaneous Allergy N/A GI Symptoms 09/07/2017 Yes thermasol preservative Miscellaneous Allergy N/A Rash 09/07/2017 Yes Penicillins [id number] Drug Allergy Unknown N/A 11/13/2018 Yes Sulfa (Sulfonamide Antibiotics) [id number] Drug Allergy Unknown N/A 2018 Yes thimerosal [id number] Drug Allergy Unknown N/A 11/13/2018 Medications Medication Packaging Start Date Stop Date Route Dosage Sig multivitamin tablet 04/01/2015 01/02/2017 1 (one) by Oral route daily naproxen 500 mg tablet Tablet 04/01 500 mg take 1 (one) Tablet by Oral route three times per day vitamin B12 500 mcg-folic acid 400 mcg tablet 10/19/2015 500-400 mcg 1 (one) by Oral route daily Medrol ([place]) 4 mg tablets in a dose pack Dose Pack 02/17/2016 08/01/2016 4 mg take 1 (one) Tablet by Oral route daily, to take as directed per dose pack instructions. Flexeril 10 mg tablet Tablet 201508/01/2016 10 mg 1 (one) Tablet by Oral route three times per day Voltaren 1 % topical gel Tube 06/10 1 % 1 (one) Gram(s) by Topical route to affected joints every 4 to 6 hours as needed Medrol ([place]) 4 mg tablets in a dose pack Dose Pack 06/10/2016 08/01/2016 4 mg 1 (one) Pack by Oral route lutein 10 mg tablet 08/01/2016 10 mg take 1 (one) Tablet by Oral route daily Probiotic 10 billion cell capsule 08/01/2016 10 billion cell 1 (one) by Oral route daily * DONT RECONCILE--CHANGE PENDING EA 08/23/2016 08/24/2016 PO PRN SODIUM CHLORIDE 0.9% 10ML FLUSH SYRINGE SYR 08/24/2016 08/24/2017 IVP BID&0900,2100 POLYETHYLENE GLYCOL 17GM PKT PKT 08/24/2017 PO QD&0900 DOCUSATE SODIUM 100MG CAPSULE CAP 08/24/2016 08/24/2017 PO BID&0900,2100 VANCOMYCIN 1GM INJ VL 08/24/2016 08/25/2016 PB Q12H&0900 ,2100 LACTATED RINGERS 1000 ML IV SOLN BAG 08/24/2016 08/24/2016 IV PRE-OP VANCOMYCIN 1GM INJ VL 08/24/2016 08/24/2016 IV PRE-OP BACITRACIN 50,000 UNITS VIAL VL 08/24/2016 IM ONCE SODIUM CHLORIDE PF 0.9% 10ML INJ VL 08/24/2016 08/24/2016 IVP ONCE LACTATED RINGERS 1000 ML IV SOLN BAG 08/24/2016 08/24/2016 IV ONCE SODIUM CHLORIDE 0.9% 1000ML IRRIG SOLN EA 08/24/2016 08/24/2016 IRR ONCE MIDAZOLAM 2MG/2ML INJ VL 201508/24/2016 IV PRE -OP fentaNYL 100 MCG/2ML INJ AMP 201508/24/2016 IV PRE -OP SCOPOLAMINE 1.5MG/72HR PATCH PAT 08/24/2016 TD PRE-OP fentaNYL 250 MCG/5ML INJ AMP 201508/24/2016 IV ONCE * Ready to Reconcile EA 08/24/2016 08/24/2016 PO ASDIR PROPOFOL 200MG/20ML INJ VL 201508/24/2016 IVP ONCE ROCURONIUM 50MG/5ML INJ VL 201508/24/2016 IVP ONCE ONDANSETRON 4MG/2ML INJ VL 201508/24/2016 IVP ONCE GLYCOPYRROLATE 0.2 MG/1ML INJ VL 08/24/2016 IVP ONCE NEOSTIGMINE 3MG/3ML SYRINGE [COMPOUND] DOS 08/24/2016 08/24/2016 IVP ONCE SODIUM CHLORIDE 0.9% W/ KCL 20MEQ 1000ML IV SOLN BAG 08/24/2016 08/24/2017 IV 100ML/HR HYDROcodone/ACETAMINOPHEN 5-325 MG TABLET TAB 08/24/2016 08/24/2017 PO [id number] CYCLOBENZAPRINE 10 MG TABLET TAB 08/24/2016 08/24/2017 PO H2STAOL hydroMORPHONE 2MG/1ML INJ ML 08/2408/24/2017 IV [id number] ONDANSETRON 4MG TABLET TAB 201508/24/2017 PO R6NAXLIL LORazepam 0.5MG TABLET TAB 201508/24/2017 PO Q4HPRN FAMOTIDINE 20 MG TABLET TAB 201508/24/2017 PO BIDPRNN BISACODYL 5MG TABLET TAB 201508/24/2017 PO PRN ONDANSETRON 4MG/2ML INJ VL 201508/24/2017 IVP [id number] METOCLOPRAMIDE 10MG/2ML INJ VL 08/24/2017 IVP [id number] SODIUM CHLORIDE 0.9% 10ML FLUSH SYRINGE SYR 08/24/2016 08/24/2017 IVP PRN SODIUM CHLORIDE 0.9% 5ML FLUSH SYRINGE SYR 08/24/2016 08/24/2017 IVP PRN MAGNESIUM HYDROXIDE 2400MG/30ML SUSP EA 08/24/2016 08/24/2017 PO PRN CEPACOL (BENZOCAINE/MENTHOL) ESTELITA TORRES 08/24/2016 08/24/2017 BC Q4HPRN BISACODYL 10MG SUPPOS. SUP 201508/24/2017 RI* PRN TEMAZEPAM 15MG CAPSULE CAP 201508/24/2017 PO HSPRNI&2200 BISACODYL 5MG TABLET TAB 201508/24/2017 PO PRN ACETAMINOPHEN 325MG TABLET TAB 08/24/2017 PO Q4HPRN PHENOL 1.4% THROAT SPRAY [118ML] EA 08/24/2016 08/24/2017 PO PRN NALOXONE 0.4MG/1ML VIAL VL 201508/24/2016 IVP ONCE hydroMORPHONE 2MG/1ML INJ ML 08/2408/24/2016 IV POST-OP METOCLOPRAMIDE 10MG TABLET TAB 08/25/2016 PO Q6H3&0300,0900,1500,2100 METOCLOPRAMIDE 10MG TABLET TAB 08/25/2017 PO [id number] Medrol ([place]) 4 mg tablets in a dose pack Dose Pack 09/05/2016 01/02/2017 4 mg TAKE DIRECTED *NAPROXEN 500MG TABLET TAB 201509/23/2017 PO QD& 0900 *OTC/HERBAL SUPPLEMENTS EA 201509/23/2017 PO ASDIR *ACETAMINOPHEN 500MG TABLET TAB 09/23/2017 PO Q4-6HPRN Medrol ([place]) 4 mg tablets in a dose pack Dose Pack 10/20/2016 4 mg 1 (one) Pack by Oral route MIDAZOLAM 2MG/2ML INJ VL 201611/17/2017 IV ASDIR methylPREDNISolone ACETATE 80MG/1ML INJ VL 11/17/2016 11/17/2017 EPD ASDIR fentaNYL 100 MCG/2ML INJ AMP 201611/17/2017 IV ASDIR BUPIVACAINE 0.25% INJ [10 ML] VL 11/17/2017 EPD ASDIR Medrol ([place]) 4 mg tablets in a dose pack Dose Pack 11/25/2016 01/02/2017 4 mg TAKE DIRECTED VERSED 0.5&Vial 02/07/2018 02/07/2018 Intravenous 1&mg PRN & LR 1000 ML 1&Bag 02/07/2018 02/08/2018 Intravenous 1000&mL C&1119 VANCOMYCIN 1 gm/250 mL NS IVPB 1&Solution 02/07/2018 02/14/2018 Intravenous 1& Bag PRN& SUBLIMAZE 0.5&Ampule 02/07/2018 02/07/2018 Intravenous 50&mcg PRN& DILAUDID CIDER MAKER 1&Syringe 02/07/2018 02/14/2018 Intravenous 12&mg PRN& NORMAL SALINE 0.3&Syringe 201703/09/2018 Intravenous 3&mL BID&0900,2100 NORMAL SALINE 0.6&Syringe 201703/09/2018 Intravenous 3&mL PRN& MILK OF MAGNESIA 1&Suspension 02/0703/09/2018 Oral 30&mL PRN& CEPACOL 1&Lozenge 02/07/2018 03/09/2018 Oral 1&Lozenge(s) PRN& PERCOCET 2&Tablet 02/07/2018 02/14/2018 Oral 2&Tablet(s) PRN& NORMAL SALINE W/ KCL 1&Bag 201703/09/2018 Intravenous 1000&mL C&1139 LIDODERM 1&Patch 02/07/2018 03/09/2018 Transdermal 1&Patch(es) BID&0900,2100 DULCOLAX 1&Suppository 02/07/2018 03/09/2018 Rectal 10&mg PRN& RESTORIL 1&Capsule 02/07/2018 02/14/2018 Oral 15&mg PRN& MIRALAX 1&Packet 02/07/2018 03/09/2018 Oral 17&gm Q1D& 0900 REGLAN 1&Tablet 02/07/2018 02/08/2018 Oral 10&mg QID&0300, 0900,1500,2100 ATIVAN 1&Tablet 02/07/2018 02/14/2018 Oral 0.5&mg PRN& PEPCID 1&Tablet 02/07/2018 03/09/2018 Oral 20&mg PRN& COLACE 1&Capsule 02/07/2018 03/09/2018 Oral 100&mg BID& 0900,2100 BENADRYL 2&Capsule 02/07/2018 03/09/2018 Oral 50&mg PRN& BENADRYL 1&Vial 02/07/2018 03/09/2018 Intravenous 50&mg PRN& FLEXERIL 1&Tablet 02/07/2018 03/09/2018 Oral 10&mg PRN& DULCOLAX 2&Tablet 02/07/2018 03/09/2018 Oral 10&mg PRN& TYLENOL; APAP 2&Tablet 02/07/2018 03/09/2018 Oral 650&mg PRN& CHLORASEPTIC 1&[place] 02/07/2018 03/09/2018 Mouth/Throat 1&[place] PRN& REGLAN 1&Vial 02/07/2018 03/09/2018 Intravenous 10&mg PRN & TRANSDERM-SCOP PATCH 1&Patch 201702/07/2018 Transdermal 1.5&mg PRN& PEPCID 1&Vial 02/07/2018 02/07/2018 Intravenous 20&mg PRN & BENADRYL 1&Vial 02/07/2018 03/09/2018 Intravenous 50&mg PRN& LUCIA-SYNEPHRINE 10 mg/100 mL NS IVPB 1&Bag 02/07/2018 02/08/2018 Intravenous 10& mg C&1402 DILAUDID 0.25&Vial 02/07/2018 02/07/2018 Intravenous 0.5&mg PRN& VANCOMYCIN 1 gm/250 mL NS IVPB 1&Solution 02/07/2018 02/08/2018 Intravenous 1& Bag BID&0015,1215 REGLAN 1&Tablet 02/08/2018 03/10/2018 Oral 10&mg PRN& DILAUDID 0.5&Tablet 02/09/2018 02/16/2018 Oral 1&mg PRN& DILAUDID 1&Vial 02/09/2018 02/16/2018 Intravenous 2&mg PRN & Problems Date Dx Coded Attending Type Code Diagnosis Diagnosed By 06/09/2016 SANTA BAILON DF M54.2 Cervicalgia 06/09/2016 SANTA BAILON DF M79.641 Pain in right hand 06/09/2016 SANTA BAILON DF M79.642 Pain in left hand 06/10/2016 Santa Bailon M48.02 Spinal stenosis, cervical region Santa Bailon 06/10/2016 Santa Bailon M50.22 Other cervical disc displacement, mid-cervical region Santa Bailon 06/10/2016 Santa Bailon M54.12 Radiculopathy, cervical region Bailon, Santa 07/26/2016 Santa Bailon M25.78 Osteophyte, vertebrae Bailon, [facility] 07/26/2016 Santa Bailon M48.02 Spinal stenosis, cervical region Bailon, Santa 07/26/2016 Santa Bailon M54.12 Radiculopathy, cervical region Bailon, Santa 07/26/2016 [facility] S[facility]A BAILON DF G56.01 Carpal tunnel syndrome, right upper limb 08/25/2016 SANTA BAILON DF M54.12 Radiculopathy, cervical region 08/25/2016 SANTA BAILON DF 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 09/07/2016 Santa Bailon M54.12 Radiculopathy, cervical region Bailon, Santa 09/07/2016 Santa Bailon 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 Santa Bailon M54.12 Radiculopathy, cervical region Flaquita Leyva S 09/07/2016 Santa Bailon 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is Flaquita Leyva S 10/20/2016 SANTA BAILON DF M48.02 Spinal stenosis, cervical region 10/20/2016 SANTA BAILON DF M50.20 Other cervical disc displacement, unspec 10/20/2016 SANTA BAILON DF Z98.1 Arthrodesis status 10/21/2016 Santa Bailon M54.12 Radiculopathy, cervical region Bailon, [facility] 10/21/2016 Santa Bailon 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 CEDRIC CALERO DF M50.123 Cervical disc disorder at C6-C7 level wi 11/17/2016 CEDRIC CALERO DF M50.323 Other cervical disc degeneration at C6-C 01/03/2017 Santa Bailon M50.222 Other cervical disc displacement at C5-C6 level Santa Bailon 09/07/2017 SANTA BAILON F M54.2 Cervicalgia 09/07/2017 SANTA BAILON F Z98.1 Arthrodesis status 09/07/2017 SANTA BAILON M43.16 Spondylolisthesis, lumbar region 09/07/2017 SANTA BAILON M54.5 Low back pain 09/29/2017 SANTA BAILON M43.16 Spondylolisthesis, lumbar region 09/29/2017 SANTA BAILON M48.061 Spinal stenosis, lumbar region without neurogenic claudication 09/29/2017 SANTA BAILON M54.16 Radiculopathy, lumbar region 11/23/2017 P [id number] Sprain of anterior cruciate ligament of left knee, subsequent encounter 11/23/2017 P [id number] Sprain of anterior cruciate ligament of left knee, subsequent encounter 01/25/2018 S M5410 Radiculopathy , site unspecified 01/25/2018 P Z0000 Encounter for general adult medical examination without abnormal findings 01/25/2018 S Z780 Asymptomatic menopausal state 01/25/2018 S Z8249 Family history of ischemic heart disease and other diseases of the circulatory system 02/01/2018 P [id number] Sprain of anterior cruciate ligament of left knee, subsequent encounter 02/10/2018 SANTA BAILON G56.01 Carpal tunnel syndrome, right upper limb 02/10/2018 SANTA BAILON M25.78 Osteophyte, vertebrae 02/10/2018 SANTA BAILON M43.16 Spondylolisthesis, lumbar region 02/10/2018 SANTA BAILON M51.16 Intervertebral disc disorders with radiculopathy, lumbar region 02/10/2018 SANTA BAILON M53.2X6 Spinal instabilities, lumbar region 02/10/2018 SANTA BAILON R74.0 Nonspecific elevation of levels of transaminase and lactic acid dehydrogenase [ LDH] 02/10/2018 SANTA BAILON Z86.73 Personal history of transient ischemic attack (TIA), and cerebral infarction without residual deficits 04/05/2018 JERZY ONEAL M25.551 Pain in right hip 04/05/2018 JERZY ONEAL M46.1 Sacroiliitis, not elsewhere classified 04/05/2018 JERZY ONEAL M54.16 Radiculopathy, lumbar region 06/14/2018 F M51.36 Other intervertebral disc degeneration, lumbar region 06/14/2018 F M54.16 Radiculopathy , lumbar region 07/12/2018 SANTA BAILON M54.17 Radiculopathy, lumbosacral region 07/12/2018 SANTA BAILON 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 07/12/2018 SANTA BAILON Z98.1 Arthrodesis status 08/10/2018 JERZY ONEAL M51.26 Other intervertebral disc displacement, lumbar region 08/10/2018 JERZY ONEAL M51.36 Other intervertebral disc degeneration, lumbar region 08/10/2018 JERZY ONEAL M54.16 Radiculopathy, lumbar region 11/13/2018 ALFREDITO MACHADO, EVA Chirinos Ot Z01.818 ENCOUNTER FOR OTHER PREPROCEDURAL EXAMIN Procedures Code [place] [address] Office Visit Santa Spicer 06/10/2016 27345 Office Visit Santa Spicer 06/23/2016 99714 Office Visit Santa Spicer 07/26/2016 55441 Office Visit Santa Spicer 08/03/2016 [id number] Fusion of 2 or more Cervical Vertebral J SANTA BAILON 08/24/2016 [id number] Inspection of Cervical Vertebral Joint, SANTA BAILON 08/24/2016 30933 Allograft for Spine Surgery Santa Bailon 09/07/2016 40881 Arthrodesis anterior interbody fusion and disckectomy cervical below C2 Santa Bailon 09/07/2016 69830 Reinsertion of Spinal Fixation Device Santa Bailon 09/07/2016 60196 Arthrodesis anterior interbody fusion and disckectomy cervical below C2 Flaquita Leyva 09/07/2016 61753 Reinsertion of Spinal Fixation Device Flaquita Leyva 09/07/2016 49085 Allograft for Spine Surgery Santa Bailon 09/26/2016 44006 Arthrodesis anterior interbody fusion and disckectomy cervical below C2 Flaquita Leyva 09/26/2016 14284 Reinsertion of Spinal Fixation Device Flaquita Leyva 09/26/2016 38530 Office Visit Santa Spicer 10/21/2016 [id number] Introduction of Anti- inflammatory into S [facility] 11/17/2016 [id number] Introduction of Local Anesthetic into [facility] 11/17/2016 07981 Office Visit Santa Spicer 11/25/2016 50273 Office Visit Santa Spicer 01/03/2017 40021 Office Visit Santa Spicer 01/12/2017 Results Test Result Range 5778-6 - 08/24/16 08:15 Glucose [Presence] in Urine by Test strip Negative Neg Bilirubin.total [Presence] in Urine by Test strip Negative Neg Ketones [Presence] in Urine by Test strip Negative Neg Specific gravity of Urine by Test strip 1.010 1.010- 1.030 Hemoglobin [Mass/volume] in Urine by Test strip Negative Neg pH of Urine 6.0 5 - 8 Protein [Presence] in Urine Negative Neg Urobilinogen [Presence] in Urine by Test strip 0.2 EU/dl 0.2-1.0 Nitrite [Presence] in Urine by Test strip Negative Neg Leukocyte esterase [Presence] in Urine by Test strip Negative Neg EBV Acute Infection Antibodies - 11/07/16 18:01 EBV Nuclear Antigen Ab, IgG 433.0 U/mL 0.0-17.9 EBV Early Antigen Ab, IgG 102.0 U/mL 0.0-8.9 EBV Ab VCA, IgG 138.0 U/mL 0.0-17.9 EBV Ab VCA, IgM <36.0 U/mL 0.0-35.9 Interpretation: Comment LymeAb(IgG/M)+HME(IgG/M)+RM... - 03/23/17 09:15 RMSF, IgG, EIA Negative Negative [facility] Spotted Fever, IgM 0.15 index 0.00-0.89 Lyme IgG/IgM Ab <0.91 ISR 0.00-0.90 Lyme Disease Ab, Quant, IgM <0.80 index 0.00-0.79 E. chaffeensis (HME) IgG Titer Negative Neg:<1:64 E. chaffeensis (HME) IgM Titer Negative Neg:<1:20 Basic Metabolic Panel - 02/07/18 12:11 Glucose [Mass/volume] in Serum or Plasma 107 mg/dL 74 - 106 Urea nitrogen [Mass/volume] in Serum or Plasma 16.2 mg/dL 7.3 - 20.2 Creatinine [Mass/volume] in Serum or Plasma 0.7 mg/dL 0.5 - 0.9 Calcium [Mass/volume] in Serum or Plasma 9.89 mg/dL 8.30 - 10.60 Sodium 140 mmol/L 135 - 151 Potassium 4.1 mmol/L 3.7 - 5.2 Chloride [Moles/volume] in Serum or Plasma 103 mmol/L 98 - 113 TCo2 27 mmol/L 23 - 34 Age at Specimen Collection 67 a Hgb & Hct (Hemoglobin & Hematocrit) - 02/08/18 04:50 Hemoglobin [Mass/volume] in Blood 12.1 g/dL 11.4 - 15.2 Hematocrit [Volume Fraction] of Blood by Automated count 34.7 % 34.0 - 46.0 Age at Specimen Collection 67 a Comprehensive metabolic 2000 panel - Serum or Plasma - 02/08/18 04:50 Glucose [Mass/volume] in Serum or Plasma 130 mg/dL 74 - 106 Urea nitrogen [Mass/volume] in Serum or Plasma 11.3 mg/dL 7.3 - 20.2 Creatinine [Mass/volume] in Serum or Plasma 0.7 mg/dL 0.5 - 0.9 Calcium [Mass/volume] in Serum or Plasma 8.71 mg/dL 8.30 - 10.60 Sodium 134 mmol/L 135 - 151 Potassium 4.3 mmol/L 3.7 - 5.2 Chloride [Moles/volume] in Serum or Plasma 100 mmol/L 98 - 113 TCo2 23 mmol/L 23 - 34 Protein [Mass/volume] in Serum or Plasma 5.7 g/dL 6.2 - 8.0 Albumin [Mass/volume] in Serum or Plasma 3.5 g/dL 3.8 - 5.5 Globulin 2.2 g/dL 2.0 - 4.0 Alk Phos 78 [iU]/L 42 - 98 AST 74 [iU]/L 0 - 30 ALT 51 [iU]/L 7 - 35 Bun/Creatinine Ratio 16.1 U 6.0 - 26.0 Bilirubin.total [Mass/volume] in Serum or Plasma 0.67 mg/dL 0.20 - 1.20 Albumin/Globulin [Mass Ratio] in Serum or Plasma 1.6 U Magnesium [Mass/volume] in Serum or Plasma - 02/08/18 04:50 Magnesium [Mass/volume] in Serum or Plasma 1.8 mg/dL 1.8 - 2.6 Age at Specimen Collection 67 a Hgb & Hct (Hemoglobin & Hematocrit) - 02/09/18 04:50 Hemoglobin [Mass/volume] in Blood 11.0 g/dL 11.4 - 15.2 Hematocrit [Volume Fraction] of Blood by Automated count 31.9 % 34.0 - 46.0 Age at Specimen Collection 67 a Comprehensive metabolic 2000 panel - Serum or Plasma - 02/09/18 04:50 Glucose [Mass/volume] in Serum or Plasma 117 mg/dL 74 - 106 Urea nitrogen [Mass/volume] in Serum or Plasma 11.5 mg/dL 7.3 - 20.2 Creatinine [Mass/volume] in Serum or Plasma 0.8 mg/dL 0.5 - 0.9 Calcium [Mass/volume] in Serum or Plasma 8.75 mg/dL 8.30 - 10.60 Sodium 136 mmol/L 135 - 151 Potassium 3.7 mmol/L 3.7 - 5.2 Chloride [Moles/volume] in Serum or Plasma 101 mmol/L 98 - 113 TCo2 28 mmol/L 23 - 34 Protein [Mass/volume] in Serum or Plasma 6.0 g/dL 6.2 - 8.0 Albumin [Mass/volume] in Serum or Plasma 3.5 g/dL 3.8 - 5.5 Globulin 2.5 g/dL 2.0 - 4.0 Alk Phos 86 [iU]/L 42 - 98 AST 63 [iU]/L 0 - 30 ALT 45 [iU]/L 7 - 35 Bun/Creatinine Ratio 14.4 U 6.0 - 26.0 Bilirubin.total [Mass/volume] in Serum or Plasma 0.72 mg/dL 0.20 - 1.20 Albumin/Globulin [Mass Ratio] in Serum or Plasma 1.4 U Age at Specimen Collection 67 a Encounters ACCT No. Visit Date/Time Discharge Status Pt. Type Provider Facility Loc./Unit Complaint [id number] 11/01/2018 15:40:21 11/01/2018 23:59:59 JOSE Outpatient Ac Nieves [id number] 09/10/2018 10:21:27 09/10/2018 23:59:59 JOSE Outpatient Ac Nieves [id number] 03/28/2018 09:18:19 03/28/2018 23:59:59 JOSE Outpatient Ac Nieves [id number] 03/13/2018 12:02:13 03/13/2018 23:59:59 JOSE Outpatient Ac Nieves [id number] 03/08/2018 10:48:20 03/08/2018 23:59:59 CLS Outpatient Meghanangin, Ac Weber [id number] 03/05/2018 10:31:26 03/05/2018 23:59:59 CLS Outpatient Meghanangin, Ac Weber [id number] 02/22/2018 14:19:31 02/22/2018 23:59:59 CLS Outpatient Meghanangin, Ac Weber [id number] 02/16/2018 14:24:05 02/16/2018 23:59:59 CLS Outpatient Skye Weaver [id number] 01/22/2018 14:33:25 01/22/2018 23:59:59 CLS Outpatient Meghanangin, Ac Weber [id number] 01/09/2018 10:59:19 01/09/2018 23:59:59 CLS Outpatient Meghanangjada, Ac Weber [id number] 11/09/2017 14:26:33 11/09/2017 23:59:59 CLS Outpatient Meghanangin, Ac Weber [id number] 03/23/2017 09:26:07 03/23/2017 23:59:59 CLS Outpatient Meghanangjada, Ac Weber [id number] 01/21/2017 11:01:10 01/21/2017 23:59:59 CLS Outpatient DobbsYesenia [id number] 11/24/2016 09:02:43 11/24/2016 23:59:59 CLS Outpatient Ac Nieevs [id number] 11/07/2016 16:03:03 11/07/2016 23:59:59 CLS Outpatient Meghanangjada, Ac Weber [id number] 06/26/2015 14:46:51 06/26/2015 23:59:59 CLS Outpatient Skye Weaver [id number] 11/13/2018 09:04:26 ACT Outpatient Ac Nieves [id number] 01/03/2017 14:18:10 01/03/2017 23:59:59 CLS Outpatient Santa Bailon [id number] 11/09/2016 15:06:00 Document Registration [id number] 06/22/2016 12:41:43 06/22/2016 12: 41:43 DIS Outpatient [id number] 06/22/2016 09:53:02 06/22/2016 09: 53:02 DIS Outpatient [id number] 06/21/2016 16:29:03 06/21/2016 16: 29:03 DIS Outpatient [id number] 06/21/2016 14:22:24 06/21/2016 14: 22:24 DIS Outpatient [id number] 06/21/2016 13:40:10 06/21/2016 13: 40:10 DIS Outpatient [id number] 06/21/2016 13:40:08 06/21/2016 13: 40:08 DIS Outpatient [id number] 06/21/2016 13:22:48 06/21/2016 13: 22:48 DIS Outpatient [id number] 06/21/2016 13:22:43 06/21/2016 13: 22:43 DIS Outpatient [id number] 06/21/2016 13:14:14 06/21/2016 13: 14:14 DIS Outpatient [id number] 06/21/2016 13:14:13 06/21/2016 13: 14:13 DIS Outpatient [id number] 06/21/2016 13:13:42 06/21/2016 13: 13:43 DIS Outpatient [id number] 06/21/2016 13:13:36 06/21/2016 13: 13:37 DIS Outpatient [id number] 06/21/2016 03:55:01 06/21/2016 03: 55:01 ACT Outpatient [id number] 06/21/2016 03:55:00 06/21/2016 03: 55:00 ACT Outpatient [id number] 06/21/2016 03:54:59 06/21/2016 03: 55:00 ACT Outpatient [id number] 06/20/2016 18:33:29 06/20/2016 18: 33:29 ACT Outpatient [id number] 06/20/2016 18:33:28 06/20/2016 18: 33:28 ACT Outpatient [id number] 06/21/2016 13:44:00 Document Registration [id number] 06/21/2016 13:37:00 Document Registration [id number] 06/09/2016 18:22:47 06/09/2016 18:22:47 Outpatient [id number] 11/13/2018 05:50:00 11/13/2018 11:59:00 DIS Outpatient EVA GLASER MD [facility] PREOP CATARACT RIGHT EYE [id number] 11/16/2018 08:06:00 ACT Outpatient EVA GLASER MD [facility] SDC RIGHT CATARACT [id number] 08/10/2018 12:48:00 08/10/2018 18:48:00 DIS Outpatient JERZY ONEAL [id number] 07/12/2018 12:55:00 07/12/2018 17:55:00 DIS Outpatient SANTA BAILON [id number] 04/05/2018 14:31:00 04/05/2018 20:31:00 DIS Outpatient JERZY ONEAL [id number] 02/07/2018 10:06:00 02/10/2018 11:40:00 DIS Inpatient BAILON, SANTA IP spondylolisthesis, radiculopathy, instability [id number] 09/29/2017 13:57:00 09/29/2017 18:57:00 DIS Outpatient BAILONSANTA XR [id number] 09/07/2017 14:58:00 09/07/2017 19:58:00 DIS Outpatient SANTA BAILON XR [id number] 09/07/2017 13:11:00 09/07/2017 18:11:00 DIS Outpatient VAL SANTA XR [id number] 11/17/2016 09:49:00 11/17/2016 11:33:00 DIS Outpatient ABDIAS CEDR[facility] PAIN cervical radiculopathy. [id number] 10/20/2016 13:57:00 10/20/2016 13:57:[address] [facility] RADS [id number] 08/24/2016 08:28:00 08/25/2016 13:34:[address] [facility] INPT NO KNOWN INJURIES,herniated disc, stenosis. [id number] 06/09/2016 13:29:00 06/09/2016 13:29:00 DIS Outpatient SANTA BAILON [facility] RADS MRI C-SP W/WO [id number] 06/14/2018 12:59:00 Document Registration [email or web address] 02/09/2018 03:45:29 ACT Document Registration [id number] 11/13/2018 15:36:44 Document Registration [id number] 11/06/2018 02:46:04 Document Registration [id number] 09/19/2018 09:04:40 Document Registration [id number] 04/16/2018 09:06:17 Document Registration [id number] 03/29/2018 14:45:02 Document Registration [id number] 03/28/2018 15:20:49 Document Registration [id number] 03/05/2018 15:30:37 Document Registration [id number] 01/22/2018 16:04:37 Document Registration [id number] 01/22/2018 14:06:09 Document Registration [id number] 10/30/2017 13:31:08 Document Registration [id number] 09/26/2017 11:58:28 Document Registration [id number] 03/28/2017 19:05:00 Document Registration
[2018-11-16] MEDS: PHENYLEPHRINE 10% OPHTH (NEO-SYN) 5 ML BTL OU SCH ×3 (08:26→08:36)
[2018-11-16] MEDS: CYCLOPENTOLATE 1% (CYCLOGYL) 2 ML DROPS OP SCH ×3 (08:26→08:36)
[2018-11-16] MEDS ORDERED: MIDAZOLAM 2 MG/2 ML (VERSED) VIAL ONE (08:37)
--- NOTE | 2018-11-16 08:50 | Ophthalmologist Pre-Op Note ---
Pre-Operative Progress Note H&P Reviewed The H&P was reviewed, patient examined and no changes noted. Date H&P Reviewed: Nov 16, 2018 Time H&P Reviewed: 08:50 Pre-Op Dx Cataract, Right Eye EVA GLASER MD Nov 16, 2018 08:50
--- NOTE | 2018-11-16 09:11 | Ophthalmology Operative Report ---
Cataract removal/placement IOL PREOPERATIVE DIAGNOSIS: Cataract Right Eye POSTOPERATIVE DIAGNOSIS: Cataract Right Eye PROCEDURE: Cataract removal and placement of posterior chamber implant, right eye SURGEON: Gordon Glaser ANESTHESIA: Topical with sedation COMPLICATIONS: None ESTIMATED BLOOD LOSS: Minimal DESCRIPTION OF PROCEDURE: After proper informed consent was obtained, the patient, a [id number] female, was taken to the Operating Room and the right eye was anesthetized with tetracaine. The right eye was then prepped and draped in the usual manner. A wire lid speculum was placed. A paracentesis was made at the left hand position. Preservative free lidocaine was injected into the anterior chamber followed by viscoelastic. A clear corneal incision was made in the temporal position. A capsulorrhexis was preformed and the central nuclear and cortical material were removed. The posterior capsule was polished and Stuart AU00T0 17.5 IOL was placed into the capsular bag. The residual viscoelastic was aspirated and balanced saline solution was injected into the anterior chamber. Moxifloxacin was injected into the anterior chamber. The wound was checked and found to be water tight. The patient tolerated the procedure well without complications. GORDON GLASER MD Nov 16, 2018 09:11
[2018-11-16 09:20] VITALS: BP 136/80
--- NOTE | 2018-11-16 12:40 | Anesthesia-General Post-Op ---
MAC Patient Condition Mental Status/LOC: Same as Preop Cardiovascular: Satisfactory Nausea/Vomiting: Absent Respiratory: Satisfactory Pain: Controlled Complications: Absent Post Op Complications Complications None Follow Up Care/Instructions Patient Instructions None needed. Anesthesiology Discharge Order Discharge Order Patient is doing well, no complaints, stable vital signs, no apparent adverse anesthesia problems. No complications reported per nursing. WAYLON ROBERTS CRNA Nov 16, 2018 12:40
== END 2018-11-16 09:20 | disposition home or self-care (01) ==
LOC: SDC 08:06
PROVIDERS: ATTEND Specialist
DX: H25.11 Age-related nuclear cataract, right eye (principal)